=== PATIENT | female | born 1990 | race Asian ===

== ENCOUNTER 2021-09-08 11:57 | Inpatient (IN) ==
[2021-09-08] MEDS ORDERED: OXYTOCIN 30 UNITS/500 ML BAG IV PRN ×2 (13:00)
[2021-09-08 13:29] LABS: Hematocrit (blood only) 38.3 % (37-47); Hemoglobin 12.7 g/dL (12.0-16.0); Mean Corpuscular Hemoglobin 29.8 pg (25-34); Mean Corpuscular Hgb Conc 33.2 g/dL (32-36); Mean Corpuscular Volume 89.9 fL (80-100); Mean Platelet Volume 11.8 fL (7.4-10.4); Platelet Count 162 K/uL (130-400); RDW Coefficient of Variation 14.3 % (11.5-14.5); RDW Standard Deviation 46.6 fL (36.4-46.3); Red Blood Count 4.26 M/uL (4.2-5.4); White Blood Count 7.02 K/uL (4.8-10.8)
--- NOTE | 2021-09-08 14:41 | History & Physical Report ---
Date of Service September 08, 2021 Assessment & Plan (1) Supervision of normal intrauterine in primigravida: Plan: Admit to L&D. EFM/toco/labs. Will plan for pitocin for augmentation of labor - sanjuana enough that cytotec cannot be used for cervical ripening, therefore will begin pitocin. Discussed plan with patient and , answered all questions. Patient speaks Tajik as a second language - she is able to converse fully, and asked questions for clarification when she did not understand. She was offered use of director life sales phone if she desired; declined for now - she will let us know if she needs this. OK for epidural when she desires. Admission and Anticipated Discharge Date Admission Date: September 08, 2021 History of Present Illness Chief Complaint: rupture of membranes Primary Care Provider: NELLI PCP 30yo @ 39 05/29, sent from office when she had spontaneous rupture of membranes during cervix examination. +FM, no vaginal bleeding. Not feeling ctx. with gestational diabetes A1. Allergies Allergy/AdvReac Type Severity Reaction Status Date / Time No Known Allergies Allergy Verified 09/08/21 11:06 Home Medications Medication Instructions Recorded Confirmed Type prenat.vits,francisco,spf-bgvj-sakue 1 tab PO DAILY 01/20/21 09/08/21 History acetone (urine) test (Ketone Urine #50 ea 04/10/21 09/08/21 Rx Test) blood sugar diagnostic (OneTouch #150 ea 04/10/21 09/08/21 Rx Verio test strips) blood-glucose meter (OneTouch #1 ea 04/10/21 09/08/21 Rx Verio Flex meter) lancets 33 gauge (OneTouch Delica #150 ea 04/10/21 09/08/21 Rx Plus Lancet) Patient History Family History (Updated 01/20/21 @ 15:12 by Ne Betancur) Other Cancer Social History (Updated 01/20/21 @ 15:14 by Ne Betancur) Smoking Status: Never smoker Second Hand Exposure: No; Do You Dip or Chew Tobacco: No; Tobacco Cessation Education Requested by Patient: No Hx Alcohol Use: No Hx Substance Use: No Preferred Language: Mandarin Hebrew Communication Ability: Effective Therapy Administrative Assistant Required: No Beliefs That Will Affect Care: None marital status: marital status details: Spouse: Kane (29) [phone] Current Living Situation: Spouse Current Living Situation Comment: Lives with and 2 male roommates current occupational status: unemployed Other Information That Helps Us Care for You: No Feels Safe at Home: Yes Safety Concerns: Feels Safe At This Time Assistive Devices: None Review of Systems All systems reviewed & are unremarkable except as noted in HPI & below Physical Exam Physical Exam: Grossly ruptured. Cervix 1/50/-3 FHT Cat 1 [place] irregular Constitutional: WD/WN, vitals as above Respiratory: normal respiratory effort, lungs clear to auscultation no respiratory distress Cardiovascular: Rate/Rhythm: regular rate and regular rhythm Gastrointestinal (Abdomen): Inspection/Auscultation: abdomen normal to inspection Percussion/Palpation: abdomen soft; abdomen nontender Gravid. No s/s chorio or abruption. Skin: no rashes, warm and dry Psychiatric: A+Ox3, euthymic affect Results & Data ([facility]) Vital Signs (Past 12 Hours) Vital Signs Temp Pulse Resp BP 09/08/21 13:52 112 H 132/79 09/08/21 13:45 36.6 C 96 H 16 125/77 09/08/21 12:16 36.8 C 96 H 20 125/77 Coding Level of Care Code None Diagnoses Supervision of normal intrauterine in primigravida Z34.00
[2021-09-08] MEDS ORDERED: ePHEDrine sulfate 50 MG/ML AMP ONE (18:56)
[2021-09-08] MEDS ORDERED: BUPIVACAINE 0.25% 30 ML VIAL ONE (18:57)
[2021-09-08] MEDS ORDERED: fentaNYL citrate 100 MCG/2 ML VIAL ONE (18:57)
[2021-09-08] MEDS ORDERED: SODIUM CHLORIDE 0.9% INJ 10 ML VIAL ONE (18:57)
[2021-09-08] MEDS ORDERED: fentaNYL 2MCG/ML ROPIVACAINE 1.25MG/ML 100 ML BAG EPI ONE (18:58)
[2021-09-08] MEDS: LACTATED RINGER'S 1,000 ML IV PRN ×2 (19:08→20:10)
[2021-09-08] MEDS ORDERED: NALBUPHINE HCL INJ 10 MG/ML AMP IV PRN (19:56)
[2021-09-08] MEDS ORDERED: NALOXONE HCL 1 MG in SODIUM CHLORIDE 0.9% 1000ML 1,000 ML IV PRN (19:56)
[2021-09-08] MEDS ORDERED: NALOXONE HCL 0.4 MG/1 ML VIAL/CARP IV PRN (19:56)
[2021-09-08] MEDS ORDERED: diphenhydrAMINE 50 MG/ML VIAL IV PRN (19:56)
[2021-09-08] MEDS ORDERED: ePHEDrine sulfate 50 MG/ML AMP IV PRN (19:56)
[2021-09-08] MEDS ORDERED: ONDANSETRON INJ 2 MG/ML 2 ML VIAL IV PRN (19:56)
--- NOTE | 2021-09-08 19:58 | Anesthesiology Consultation ---
Date of Service September 08, 2021 Assessment & Plan (1) Encounter for pre-operative examination: Chart Review Chart Review: Patient NOT seen in Pre Admission Testing and Acceptable Risk for Labor Epidural Consults Requested none History Height/Weight Height: 5 ft 1.02 in Weight: 66.224 kg Allergies Allergy/AdvReac Type Severity Reaction Status Date / Time No Known Allergies Allergy Verified 09/08/21 11:06 Medications Home Medications Medication Instructions Recorded Confirmed Last Taken prenat.vits,francisco,hxo-stbi-hstdf 1 tab PO DAILY 01/20/21 09/08/21 09/08/21 10:00 acetone (urine) test (Ketone Urine #50 ea 04/10/21 09/08/21 Unknown Test) blood sugar diagnostic (OneTouch #150 ea 04/10/21 09/08/21 Unknown Verio test strips) blood-glucose meter (OneTouch #1 ea 04/10/21 09/08/21 Unknown Verio Flex meter) lancets 33 gauge (OneTouch Delica #150 ea 04/10/21 09/08/21 Unknown Plus Lancet) Active Medications Generic Name Dose Route Start Last Admin Trade Name Freq PRN Reason Stop Dose Admin Oxytocin 30 units in 500 mls @ 15 mls/hr 09/08/21 13:00 09/08/21 17:10 Pitocin IV 09/10/21 12:59 0.9 units/hr .Q24H PRN 15 mls/hr Labor Induction/Augmentation Titration Protocol 0.9 UNITS/HR Lactated Ringer's 1,000 mls @ 125 mls/hr 09/08/21 13:00 09/08/21 19:08 Lr IV 09/10/21 12:59 999 mls/hr .Q8H PRN Administration L&D Protocol Protocol Past Medical History healthy Exercise / Class Metabolic Activity II 4-5 Yardwork/Stairs/Walk up hill Past Family History Family History Other Cancer Past Anesthesia History No Hx of Anesthesia Complications and No Family Hx of Anesthesia Complications History of PONV No Hx of PONV and No Hx of Motion Sickness Social History Smoking Status: Never smoker Do You Dip or Chew Tobacco: No Hx Alcohol Use: No Hx Substance Use: No substance use type: does not use Physical Exam Vital Signs Last Vital Signs Temp 36.6 C 09/08/21 13:45 Pulse 74 09/08/21 20:16 Resp 18 09/08/21 19:30 BP 133/81 09/08/21 20:13 Pulse Ox 100 09/08/21 20:16 Testing Laboratory Results 09/08/21 13:12 09/08/21 09/08/21 09/08/21 18:20 16:19 14:16 POC Glucose 90 89 109 H
[2021-09-08] MEDS: fentaNYL 2MCG/ML ROPIVACAINE 1.25MG/ML 100 ML BAG EPI PRN (20:24)
--- NOTE | 2021-09-08 21:21 | Labor Progress Brief Note ---
Date of Service September 08, 2021 Subjective Comfortable with epidural. [place] Q 2-3 min FHT Cat 1 with early decels SVE 2/90/-2 - cervix has thinned and softened significantly since last exam. Discussed findings with patient, answered questions. Assessment & Plan Admission and Anticipated Discharge Date Admission Date: September 08, 2021 Results & Data ([facility]) Vital Signs (Past 12 Hours) Vital Signs Temp Pulse Resp BP Pulse Ox 09/08/21 21:16 70 97 09/08/21 21:11 86 98 09/08/21 21:06 70 129/81 98 09/08/21 21:01 88 98 09/08/21 21:00 18 09/08/21 20:56 72 97 09/08/21 20:51 81 98 09/08/21 20:50 78 121/77 09/08/21 20:46 79 97 09/08/21 20:41 72 97 09/08/21 20:36 93 H 97 09/08/21 20:31 82 124/87 97 09/08/21 20:28 75 118/75 09/08/21 20:26 86 98 09/08/21 20:25 82 121/69 09/08/21 20:22 77 124/68 09/08/21 20:21 80 98 09/08/21 20:18 73 107/79 90 09/08/21 20:16 74 100 09/08/21 20:13 79 133/81 09/08/21 20:11 83 100 09/08/21 20:06 79 100 09/08/21 20:03 76 91 09/08/21 20:01 81 100 09/08/21 19:56 78 99 09/08/21 19:46 71 100 09/08/21 19:41 71 98 09/08/21 19:36 75 100 09/08/21 19:31 71 100 09/08/21 19:30 18 09/08/21 19:26 72 99 09/08/21 19:22 18 09/08/21 19:21 76 97 09/08/21 19:16 72 99 09/08/21 19:15 18 09/08/21 19:11 74 98 09/08/21 19:06 97 H 97 09/08/21 13:52 112 H 132/79 09/08/21 13:45 36.6 C 96 H 16 125/77 09/08/21 12:16 36.8 C 96 H Coding Level of Care Code None
[2021-09-09] MEDS ORDERED: LIDOCAINE 2%/EPINEPHRINE 1:200,000 20 ML SDV ONE (01:50)
[2021-09-09] MEDS: BUPIVACAINE 0.25% 30 ML VIAL ONE ×2 (02:04→02:05)
--- NOTE | 2021-09-09 02:21 | Labor Progress Brief Note ---
Date of Service September 09, 2021 Subjective Painful with contractions - anesthesia has been called to re-dose epidural. FHT with early and variable ctx - then had drop for approx 3 min in FHT, but returned to baseline. Resuscitative measures included repositioning and stopping pitocin. FHT returned to baseline. SVE 5/100/-1 Suspect patient is transitioning into active labor. Will change blood sugar checks to hourly at this time. Continue labor. Assessment & Plan Admission and Anticipated Discharge Date Admission Date: September 08, 2021 Results & Data ([facility]) Vital Signs (Past 12 Hours) Vital Signs Temp Pulse Resp BP Pulse Ox 09/09/21 02:16 92 H 97 09/09/21 02:11 97 H 98 09/09/21 02:06 90 116/65 99 09/09/21 02:03 89 111/58 L 09/09/21 02:01 77 100 09/09/21 02:00 18 09/09/21 01:56 123 H 100 09/09/21 01:51 103 H 100 09/09/21 01:46 104 H 99 09/09/21 01:41 86 98 09/09/21 01:36 85 96 09/09/21 01:35 74 118/67 09/09/21 01:31 72 97 09/09/21 01:26 85 96 09/09/21 01:21 70 119/68 97 09/09/21 01:16 81 96 09/09/21 01:11 91 H 98 09/09/21 01:06 74 113/67 97 09/09/21 01:01 73 95 09/09/21 01:00 18 09/09/21 00:56 71 96 09/09/21 00:51 72 128/58 L 97 09/09/21 00:46 70 96 09/09/21 00:41 82 97 09/09/21 00:36 83 100 09/09/21 00:34 82 90 09/09/21 00:31 70 96 09/09/21 00:30 18 09/09/21 00:26 70 95 09/09/21 00:21 68 116/61 95 09/09/21 00:16 70 96 09/09/21 00:11 88 97 09/09/21 00:06 70 100/56 L 95 09/09/21 00:01 87 96 05/21/22 00:00 18 05/20/22 23:56 80 96 05/20/22 23:51 70 97 05/20/22 23:50 77 109/61 05/20/22 23:46 70 96 05/20/22 23:41 76 96 05/20/22 23:36 74 122/67 97 05/20/22 23:31 83 96 05/20/22 23:30 36.8 C 18 05/20/22 23:26 84 96 05/20/22 23:21 72 111/62 96 05/20/22 23:16 78 96 05/20/22 23:11 70 96 05/20/22 23:06 71 114/65 97 05/20/22 23:01 71 97 05/20/22 23:00 18 05/20/22 22:56 68 96 05/20/22 22:51 67 125/73 96 05/20/22 22:46 80 96 05/20/22 22:41 67 96 05/20/22 22:37 70 127/78 05/20/22 22:36 65 97 05/20/22 22:31 82 97 05/20/22 22:30 18 05/20/22 22:26 81 97 05/20/22 22:21 81 96 05/20/22 22:20 75 109/66 05/20/22 22:16 65 96 05/20/22 22:11 75 96 05/20/22 22:06 72 125/80 96 05/20/22 22:01 72 97 05/20/22 22:00 18 05/20/22 21:56 68 97 05/20/22 21:52 65 119/72 05/20/22 21:51 64 97 05/20/22 21:46 64 97 05/20/22 21:41 68 97 05/20/22 21:36 63 98 05/20/22 21:35 72 115/75 05/20/22 21:31 74 98 05/20/22 21:30 36.6 C 18 05/20/22 21:26 69 98 05/20/22 21:21 73 121/80 98 05/20/22 21:16 70 97 05/20/22 21:11 86 98 05/20/22 21:06 70 129/81 98 05/20/22 21:01 88 98 05/20/22 21:00 18 052022 20:56 72 97 05/2022 20:51 81 98 052022 20:50 78 121/77 052022 20:46 79 97 052022 20:41 72 97 052022 20:36 93 H 97 052022 20:31 82 124/87 97 052022 20:28 75 118/75 052022 20:26 86 98 052022 20:25 82 121/69 0520/22 20:22 77 124/68 052022 20:21 80 98 052022 20:18 73 107/79 90 05 20:16 74 100 052022 20:13 79 133/81 052022 20:11 83 100 0522 20:06 79 100 05 20:03 76 91 05 20:01 81 100 05 19:56 78 99 05 19:46 71 100 0522 19:41 71 98 0522 19:36 75 100 052022 19:31 71 100 052022 19:30 18 0520 19:26 72 99 052022 19:22 18 052022 19:21 76 97 052022 19:16 72 99 05/2022 19:15 18 05/2022 19:11 74 98 0520 19:06 97 H 97 Coding Level of Care Code None
[2021-09-09] MEDS: LACTATED RINGER'S 1,000 ML IV PRN ×3 (02:55→15:39)
[2021-09-09] MEDS: fentaNYL 2MCG/ML ROPIVACAINE 1.25MG/ML 100 ML BAG EPI PRN ×2 (04:59→11:17)
--- NOTE | 2021-09-09 06:20 | Labor Progress Brief Note ---
Date of Service September 09, 2021 Subjective Uncomfortable with ctx. Pushing redose of epidural. FHT Cat 1 - early decels. [place] Q 2 7/100/-1 (RN check) Continue labor. Assessment & Plan Admission and Anticipated Discharge Date Admission Date: September 08, 2021 Results & Data ([facility]) Vital Signs (Past 12 Hours) Vital Signs Temp Pulse Resp BP Pulse Ox 09/09/21 06:16 87 97 09/09/21 06:11 80 96 09/09/21 06:07 76 133/74 09/09/21 06:06 79 96 09/09/21 06:01 88 96 09/09/21 06:00 18 09/09/21 05:56 82 97 09/09/21 05:51 79 103/62 98 09/09/21 05:46 83 96 09/09/21 05:41 86 95 09/09/21 05:36 85 137/75 96 09/09/21 05:31 83 96 09/09/21 05:30 18 09/09/21 05:26 80 96 09/09/21 05:21 88 121/59 L 96 09/09/21 05:16 81 95 09/09/21 05:11 89 95 09/09/21 05:06 77 121/73 97 09/09/21 05:01 89 96 09/09/21 05:00 36.8 C 18 09/09/21 04:56 100 H 96 09/09/21 04:51 81 95 09/09/21 04:50 93 H 115/60 09/09/21 04:47 18 09/09/21 04:46 95 H 96 09/09/21 04:41 101 H 96 09/09/21 04:40 89 94 09/09/21 04:37 80 124/67 09/09/21 04:36 85 94 09/09/21 04:34 91 H 94 09/09/21 04:31 80 95 09/09/21 04:30 18 09/09/21 04:29 86 94 09/09/21 04:26 85 94 09/09/21 04:22 85 94 09/09/21 04:21 84 94 09/09/21 04:20 86 107/59 L 09/09/21 04:16 83 95 09/09/21 04:15 83 94 09/09/21 04:11 87 95 05 04:06 80 131/68 95 05 04:01 84 94 05 03:58 82 94 05 03:56 83 95 05 03:51 87 119/65 95 05 03:46 94 H 96 05 03:41 86 95 05 03:36 85 95 05 03:35 100 H 116/68 05 03:31 82 95 05 03:30 18 09/09/21 03:26 86 95 05 03:21 83 95 09/09/21 03:20 103 H 108/65 09/09/21 03:16 83 96 09/09/21 03:11 82 96 09/09/21 03:07 86 113/70 09/09/21 03:06 82 96 09/09/21 03:01 80 95 09/09/21 03:00 18 09/09/21 02:56 90 97 05 02:52 88 119/70 05 02:51 85 97 09/09/21 02:46 101 H 97 09/09/21 02:41 90 97 09/09/21 02:36 97 H 116/70 98 09/09/21 02:31 86 96 09/09/21 02:30 36.8 C 18 09/09/21 02:26 84 97 09/09/21 02:21 93 H 122/71 97 09/09/21 02:16 92 H 97 09/09/21 02:11 97 H 98 09/09/21 02:06 90 116/65 99 09/09/21 02:03 89 111/58 L 09/09/21 02:01 77 100 09/09/21 02:00 18 09/09/21 01:56 123 H 100 05 01:51 103 H 100 09/09/21 01:46 104 H 99 09/09/21 01:41 86 98 09/09/21 01:36 85 96 05 01:35 74 118/67 05 01:31 72 97 05 01:26 85 96 05 01:21 70 119/68 97 05/21/22 01:16 81 96 05/21/22 01:11 91 H 98 05/21/22 01:06 74 113/67 97 05/22 01:01 73 95 05/22 01:00 18 05/21/22 00:56 71 96 05/21/22 00:51 72 128/58 L 97 05/21/22 00:46 70 96 05/21/22 00:41 82 97 0521/22 00:36 83 100 0521/22 00:34 82 90 05/21/22 00:31 70 96 05/21/22 00:30 18 05/21/22 00:26 70 95 05/21/22 00:21 68 116/61 95 05/21/22 00:16 70 96 05/21/22 00:11 88 97 0521/22 00:06 70 100/56 L 95 05 00:01 87 96 05/2122 00:00 18 05/20/22 23:56 80 96 05/20/22 23:51 70 97 05/20/22 23:50 77 109/61 05/20/22 23:46 70 96 05/20/22 23:41 76 96 05/20/22 23:36 74 122/67 97 05/20/22 23:31 83 96 05/20/22 23:30 36.8 C 18 05/20/22 23:26 84 96 05/20/22 23:21 72 111/62 96 05/20/22 23:16 78 96 05/20/22 23:11 70 96 05/20/22 23:06 71 114/65 97 05/20/22 23:01 71 97 05/20/22 23:00 18 05/20/22 22:56 68 96 05/20/22 22:51 67 125/73 96 05/20/22 22:46 80 96 05/20/22 22:41 67 96 05/20/22 22:37 70 127/78 05/20/22 22:36 65 97 05/20/22 22:31 82 97 05/20/22 22:30 18 05/20/22 22:26 81 97 05/20/22 22:21 81 96 05/20/22 22:20 75 109/66 05/20/22 22:16 65 96 05/20/22 22:11 75 96 05/20/22 22:06 72 125/80 96 05/20/22 22:01 72 97 05/20/22 22:00 18 05/20/22 21:56 68 97 05/20/22 21:52 65 119/72 05/20/22 21:51 64 97 05/20/22 21:46 64 97 05/20/22 21:41 68 97 05/20/22 21:36 63 98 05/20/22 21:35 72 115/75 05/20/22 21:31 74 98 05/20/22 21:30 36.6 C 18 05/20/22 21:26 69 98 05/20/22 21:21 73 121/80 98 05/20/22 21:16 70 97 05/20/22 21:11 86 98 05/20/22 21:06 70 129/81 98 05/20/22 21:01 88 98 05/20/22 21:00 18 05/20/22 20:56 72 97 05/20/22 20:51 81 98 05/20/22 20:50 78 121/77 05/20/22 20:46 79 97 05/20/22 20:41 72 97 05/20/22 20:36 93 H 97 05/20/22 20:31 82 124/87 97 05/20/22 20:28 75 118/75 05/20/22 20:26 86 98 05/20/22 20:25 82 121/69 05/20/22 20:22 77 124/68 05/20/22 20:21 80 98 05/20/22 20:18 73 107/79 90 05/20/22 20:16 74 100 05/20/22 20:13 79 133/81 05/20/22 20:11 83 100 05/20/22 20:06 79 100 05/20/22 20:03 76 91 05/20/22 20:01 81 100 05/20/22 19:56 78 99 05/20/22 19:46 71 100 05/20/22 19:41 71 98 05/20/22 19:36 75 100 05/20/22 19:31 71 100 05/20/22 19:30 18 05/20/22 19:26 72 99 05/20/22 19:22 18 05/20/22 19:21 76 97 09/08/21 19:16 72 99 09/08/21 19:15 18 09/08/21 19:11 74 98 09/08/21 19:06 97 H 97 Coding Level of Care Code None
--- NOTE | 2021-09-09 08:17 | Communication Note ---
Date of Service: September 09, 2021 pt c/o 5/10 sharp pain on left side and back. pt bolused with 1% lidocaine with epi 5mL. pt reports improvement in pain and vss
--- NOTE | 2021-09-09 13:32 | Labor Progress Brief Note ---
Date of Service September 09, 2021 Helio sullivan the patient has been pushing however on my for cervical check and she is actually room at this stage we will hold off on pushing anesthesia recently is attempted to get the patient more comfortable with the increased dosing on the epidural. Her contraction pattern seems adequate and she has been on Pitocin for a pproximately 24 hours now due to ruptured membranes that was apparently from an examination in the office. Station 0 we will have the patient wait for descent of the head and full dilatation and then resume pushing Assessment & Plan Admission and Anticipated Discharge Date Admission Date: September 08, 2021 Results & Data ([facility]) Vital Signs (Past 12 Hours) Vital Signs Temp Pulse Resp BP Pulse Ox 09/09/21 13:29 83 89 L 09/09/21 13:27 84 90 09/09/21 13:25 76 137/73 09/09/21 13:22 75 144/75 H 90 09/09/21 13:17 75 93 09/09/21 13:16 79 92 09/09/21 13:12 72 94 09/09/21 13:09 73 92 09/09/21 13:07 75 146/73 H 89 L 09/09/21 13:03 78 92 09/09/21 13:02 73 95 09/09/21 12:57 79 93 09/09/21 12:55 86 92 09/09/21 12:52 105 H 94 09/09/21 12:37 86 79 L 09/09/21 12:36 80 126/62 09/09/21 12:34 79 85 L 09/09/21 12:32 92 H 89 L 09/09/21 12:28 86 90 09/09/21 12:27 90 93 09/09/21 12:23 99.0 F 20 09/09/21 12:21 95 H 116/55 L 92 09/09/21 12:16 118 H 80 L 09/09/21 12:11 88 96 09/09/21 12:06 80 95 09/09/21 12:05 86 111/58 L 09/09/21 12:03 74 132/68 09/09/21 12:01 73 92 09/09/21 11:57 102 H 91 09/09/21 11:56 91 H 93 09/09/21 11:51 88 92 05/21/22 11:48 83 90 05/21/22 11:46 75 94 05/21/22 11:42 83 87 L 05/21/22 11:41 78 94 05/21/22 11:37 75 141/65 H 0521/22 11:36 73 97 05/21/22 11:31 79 95 05/21/22 11:30 75 92 05/21/22 11:26 76 97 05/21/22 11:21 72 97 05/21/22 11:20 71 139/84 05/21/22 11:16 72 96 05/21/22 11:11 70 97 05/21/22 11:06 72 130/82 95 05/21/22 11:01 77 95 05/21/22 10:59 16 05/22 10:56 85 95 05//22 10:51 74 127/74 96 05/21/22 10:46 74 96 05/21/22 10:41 77 96 05//22 10:36 79 96 05/22 10:35 75 111/62 05/22 10:31 83 95 0521/22 10:30 18 05/22 10:26 73 96 05//22 10:21 76 97 05//22 10:20 85 96/53 L 22 10:16 74 95 05/22 10:11 73 97 05/22 10:06 83 97/53 L 97 05 10:01 72 96 05/22 10:00 16 05/22 09:56 72 97 05/22 09:52 72 109/57 L 05/22 09:51 72 98 05/21/22 09:46 78 95 05/21/22 09:41 77 94 05/21/22 09:36 82 95 05/21/22 09:35 70 124/76 0521/22 09:31 76 95 05/21/22 09:29 16 05/21/22 09:26 78 94 05/21/22 09:25 86 94 05/21/22 09:21 79 111/73 96 05/21/22 09:18 99.0 F 0521/22 09:16 72 96 05/21/22 09:11 78 96 05/21/22 09:07 71 128/68 05/21/22 09:06 78 95 05/21/22 09:01 78 96 05/21/22 09:00 16 05/21/22 08:56 78 97 05/21/22 08:51 77 126/72 95 05/21/22 08:46 78 96 05/21/22 08:43 83 93 05/21/22 08:41 81 96 05/21/22 08:36 79 95 05/21/22 08:35 73 119/67 05/21/22 08:31 75 96 05/21/22 08:30 16 05/21/22 08:26 84 96 05/21/22 08:21 93 H 110/61 96 05/21/22 08:16 77 96 05/21/22 08:11 87 97 05/21/22 08:07 99.5 F 78 16 127/70 05/21/22 08:06 81 95 05/21/22 08:01 83 96 05/21/22 07:59 16 05/21/22 07:56 88 95 05/21/22 07:52 83 94 05/21/22 07:51 81 95 05/21/22 07:50 82 118/65 05/21/22 07:46 82 95 05/21/22 07:41 85 95 05/21/22 07:36 86 96 05/21/22 07:31 80 96 05/21/22 07:26 75 97 05/21/22 07:21 78 132/75 99 05/21/22 07:16 77 99 05/21/22 07:11 77 96 05/21/22 07:06 75 97 05/21/22 07:05 75 137/74 05/21/22 07:01 81 98 05/21/22 07:00 18 05/21/22 06:56 81 97 05/21/22 06:51 76 122/65 97 05/21/22 06:46 77 96 05/21/22 06:41 79 96 05/21/22 06:37 79 118/61 05/21/22 06:36 77 96 05/21/22 06:31 78 96 05/21/22 06:30 18 05/21/22 06:26 79 96 05/21/22 06:22 78 139/84 05/21/22 06:21 75 97 05/21/22 06:16 87 97 05 06:11 80 96 05 06:07 76 133/74 05 06:06 79 96 05 06:01 88 96 09/09/21 06:00 18 09/09/21 05:56 82 97 09/09/21 05:51 79 103/62 98 05 05:46 83 96 05 05:41 86 95 09/09/21 05:36 85 137/75 96 05 05:31 83 96 05 05:30 18 05 05:26 80 96 05 05:21 88 121/59 L 96 09/09/21 05:16 81 95 09/09/21 05:11 89 95 09/09/21 05:06 77 121/73 97 09/09/21 05:01 89 96 09/09/21 05:00 98.2 F 18 09/09/21 04:56 100 H 96 09/09/21 04:51 81 95 05 04:50 93 H 115/60 05 04:47 18 05 04:46 95 H 96 09/09/21 04:41 101 H 96 09/09/21 04:40 89 94 05 04:37 80 124/67 05 04:36 85 94 09/09/21 04:34 91 H 94 09/09/21 04:31 80 95 05 04:30 18 05 04:29 86 94 05 04:26 85 94 05 04:22 85 94 05 04:21 84 94 05 04:20 86 107/59 L 09/09/21 04:16 83 95 05 04:15 83 94 05 04:11 87 95 05 04:06 80 131/68 95 05 04:01 84 94 05 03:58 82 94 05 03:56 83 95 05 03:51 87 119/65 95 05 03:46 94 H 96 05 03:41 86 95 05/21/22 03:36 85 95 09/09/21 03:35 100 H 116/68 09/09/21 03:31 82 95 09/09/21 03:30 18 09/09/21 03:26 86 95 09/09/21 03:21 83 95 09/09/21 03:20 103 H 108/65 09/09/21 03:16 83 96 09/09/21 03:11 82 96 09/09/21 03:07 86 113/70 09/09/21 03:06 82 96 09/09/21 03:01 80 95 09/09/21 03:00 18 09/09/21 02:56 90 97 09/09/21 02:52 88 119/70 09/09/21 02:51 85 97 09/09/21 02:46 101 H 97 09/09/21 02:41 90 97 09/09/21 02:36 97 H 116/70 98 09/09/21 02:31 86 96 09/09/21 02:30 98.2 F 18 09/09/21 02:26 84 97 09/09/21 02:21 93 H 122/71 97 09/09/21 02:16 92 H 97 09/09/21 02:11 97 H 98 09/09/21 02:06 90 116/65 99 09/09/21 02:03 89 111/58 L 09/09/21 02:01 77 100 09/09/21 02:00 18 09/09/21 01:56 123 H 100 09/09/21 01:51 103 H 100 09/09/21 01:46 104 H 99 09/09/21 01:41 86 98 09/09/21 01:36 85 96 09/09/21 01:35 74 118/67 Coding Level of Care Code None
--- NOTE | 2021-09-09 14:05 | Labor Progress Brief Note ---
Date of Service September 09, 2021 Update from last note contractions actually had not been adequate that was a typo we are trying to continue the Pitocin I had a fairly lengthy conversation with both the patient and her partner I am concerned about this process as its been more than 24 hours on Pitocin and progress is really slowed down. I discussed that we make the contractions more adequate this is her best chance but the baby may or may not tolerate this to as the repeat periodic decelerations. With that being said we will do all we can to avoid unnecessary but I did talk about the possibility of as the patient is somewhat exhausted at this stage. I will check her in the near future and see if there is any cervical change Assessment & Plan Admission and Anticipated Discharge Date Admission Date: September 08, 2021 Results & Data ([facility]) Vital Signs (Past 12 Hours) Vital Signs Temp Pulse Resp BP Pulse Ox 09/09/21 14:02 77 95 09/09/21 13:57 74 95 09/09/21 13:52 81 111/62 93 09/09/21 13:47 84 92 09/09/21 13:42 75 92 09/09/21 13:41 77 92 09/09/21 13:37 83 92 09/09/21 13:36 74 115/64 09/09/21 13:35 76 92 09/09/21 13:32 85 92 09/09/21 13:29 83 89 L 09/09/21 13:27 84 90 09/09/21 13:25 76 137/73 09/09/21 13:22 75 144/75 H 90 09/09/21 13:17 75 93 09/09/21 13:16 79 92 09/09/21 13:12 72 94 09/09/21 13:09 73 92 09/09/21 13:07 75 146/73 H 89 L 09/09/21 13:03 78 92 09/09/21 13:02 73 95 09/09/21 12:57 79 93 09/09/21 12:55 86 92 09/09/21 12:52 105 H 94 09/09/21 12:37 86 79 L 09/09/21 12:36 80 126/62 09/09/21 12:34 79 85 L 09/09/21 12:32 92 H 89 L 09/09/21 12:28 86 90 09/09/21 12:27 90 93 09/09/21 12:23 99.0 F 20 09/09/21 12:21 95 H 116/55 L 92 09/09/21 12:16 118 H 80 L 09/09/21 12:11 88 96 09/09/21 12:06 80 95 09/09/21 12:05 86 111/58 L 09/09/21 12:03 74 132/68 09/09/21 12:01 73 92 09/09/21 11:57 102 H 91 09/09/21 11:56 91 H 93 09/09/21 11:51 88 92 09/09/21 11:48 83 90 09/09/21 11:46 75 94 09/09/21 11:42 83 87 L 09/09/21 11:41 78 94 09/09/21 11:37 75 141/65 H 09/09/21 11:36 73 97 09/09/21 11:31 79 95 09/09/21 11:30 75 92 09/09/21 11:26 76 97 09/09/21 11:21 72 97 09/09/21 11:20 71 139/84 09/09/21 11:16 72 96 09/09/21 11:11 70 97 09/09/21 11:06 72 130/82 95 09/09/21 11:01 77 95 09/09/21 10:59 16 09/09/21 10:56 85 95 09/09/21 10:51 74 127/74 96 09/09/21 10:46 74 96 09/09/21 10:41 77 96 09/09/21 10:36 79 96 09/09/21 10:35 75 111/62 09/09/21 10:31 83 95 09/09/21 10:30 18 09/09/21 10:26 73 96 09/09/21 10:21 76 97 09/09/21 10:20 85 96/53 L 09/09/21 10:16 74 95 09/09/21 10:11 73 97 09/09/21 10:06 83 97/53 L 97 09/09/21 10:01 72 96 09/09/21 10:00 16 09/09/21 09:56 72 97 09/09/21 09:52 72 109/57 L 05/21/22 09:51 72 98 05/21/22 09:46 78 95 05/21/22 09:41 77 94 05/21/22 09:36 82 95 05/21/22 09:35 70 124/76 05/21/22 09:31 76 95 05/21/22 09:29 16 05/21/22 09:26 78 94 05/21/22 09:25 86 94 05/21/22 09:21 79 111/73 96 05/21/22 09:18 99.0 F 05/21/22 09:16 72 96 05/21/22 09:11 78 96 05/21/22 09:07 71 128/68 05/21/22 09:06 78 95 05/21/22 09:01 78 96 05/21/22 09:00 16 05/21/22 08:56 78 97 05/21/22 08:51 77 126/72 95 05/21/22 08:46 78 96 05/21/22 08:43 83 93 05/21/22 08:41 81 96 05/21/22 08:36 79 95 05/21/22 08:35 73 119/67 05/21/22 08:31 75 96 05/21/22 08:30 16 05/21/22 08:26 84 96 05/21/22 08:21 93 H 110/61 96 05/21/22 08:16 77 96 05/21/22 08:11 87 97 05/21/22 08:07 99.5 F 78 16 127/70 05/21/22 08:06 81 95 05/21/22 08:01 83 96 05/21/22 07:59 16 05/21/22 07:56 88 95 05/21/22 07:52 83 94 05/21/22 07:51 81 95 05/21/22 07:50 82 118/65 05/21/22 07:46 82 95 05/21/22 07:41 85 95 05/21/22 07:36 86 96 05/21/22 07:31 80 96 05/21/22 07:26 75 97 05/21/22 07:21 78 132/75 99 05/21/22 07:16 77 99 05/21/22 07:11 77 96 05/21/22 07:06 75 97 05/21/22 07:05 75 137/74 05 07:01 81 98 05 07:00 18 09/09/21 06:56 81 97 05 06:51 76 122/65 97 09/09/21 06:46 77 96 05 06:41 79 96 09/09/21 06:37 79 118/61 05 06:36 77 96 05 06:31 78 96 05 06:30 18 05 06:26 79 96 05 06:22 78 139/84 05 06:21 75 97 09/09/21 06:16 87 97 09/09/21 06:11 80 96 09/09/21 06:07 76 133/74 05 06:06 79 96 09/09/21 06:01 88 96 09/09/21 06:00 18 09/09/21 05:56 82 97 09/09/21 05:51 79 103/62 98 09/09/21 05:46 83 96 09/09/21 05:41 86 95 05 05:36 85 137/75 96 09/09/21 05:31 83 96 09/09/21 05:30 18 05 05:26 80 96 05 05:21 88 121/59 L 96 09/09/21 05:16 81 95 09/09/21 05:11 89 95 05 05:06 77 121/73 97 05 05:01 89 96 05 05:00 98.2 F 18 05 04:56 100 H 96 0522 04:51 81 95 05 04:50 93 H 115/60 0522 04:47 18 05 04:46 95 H 96 05 04:41 101 H 96 05 04:40 89 94 0522 04:37 80 124/67 0522 04:36 85 94 0522 04:34 91 H 94 0522 04:31 80 95 05 04:30 18 0522 04:29 86 94 0522 04:26 85 94 05/22 04:22 85 94 09/09/21 04:21 84 94 09/09/21 04:20 86 107/59 L 09/09/21 04:16 83 95 09/09/21 04:15 83 94 09/09/21 04:11 87 95 09/09/21 04:06 80 131/68 95 09/09/21 04:01 84 94 09/09/21 03:58 82 94 09/09/21 03:56 83 95 09/09/21 03:51 87 119/65 95 09/09/21 03:46 94 H 96 09/09/21 03:41 86 95 09/09/21 03:36 85 95 09/09/21 03:35 100 H 116/68 09/09/21 03:31 82 95 09/09/21 03:30 18 09/09/21 03:26 86 95 09/09/21 03:21 83 95 09/09/21 03:20 103 H 108/65 09/09/21 03:16 83 96 09/09/21 03:11 82 96 09/09/21 03:07 86 113/70 09/09/21 03:06 82 96 09/09/21 03:01 80 95 09/09/21 03:00 18 09/09/21 02:56 90 97 09/09/21 02:52 88 119/70 09/09/21 02:51 85 97 09/09/21 02:46 101 H 97 09/09/21 02:41 90 97 09/09/21 02:36 97 H 116/70 98 09/09/21 02:31 86 96 09/09/21 02:30 98.2 F 18 09/09/21 02:26 84 97 09/09/21 02:21 93 H 122/71 97 09/09/21 02:16 92 H 97 09/09/21 02:11 97 H 98 09/09/21 02:06 90 116/65 99 Coding Level of Care Code None
--- NOTE | 2021-09-09 14:50 | Labor Progress Brief Note ---
Date of Service September 09, 2021 On recheck of her cervix there is more swelling of the anterior lip and she has a complete rim around the cervix. There is still 0 station there is increased caput. On review of her induction process for rupture membranes she is now really slowed down she was 8 cm this morning at most she is 9 now and that is over a process of 7 hours. I have discussed my concerns especially with some recurrent D cells that section might well be advised. There is been slow process prolonged rupture of membranes and increased swelling of the anterior lip. I discussed what is involved in a section and risks involved we discussed the risks of a prolonged labor rupture of membranes and infection risks as well. Ultimately the question is whether the baby will fit through the pelvis at this stage I am suspect that it will not however there not sure what they wish at this stage and will converse amongst themselves Assessment & Plan Admission and Anticipated Discharge Date Admission Date: September 08, 2021 Results & Data ([facility]) Vital Signs (Past 12 Hours) Vital Signs Temp Pulse Resp BP Pulse Ox 09/09/21 14:42 74 94 09/09/21 14:37 98 H 96 09/09/21 14:35 77 130/75 09/09/21 14:32 83 94 09/09/21 14:29 95 H 91 09/09/21 14:27 69 93 09/09/21 14:22 73 93 09/09/21 14:21 74 130/73 09/09/21 14:17 76 92 09/09/21 14:12 90 95 09/09/21 14:11 99.0 F 78 18 91 09/09/21 14:07 77 96 09/09/21 14:06 75 131/75 09/09/21 14:02 77 95 09/09/21 13:57 74 95 09/09/21 13:52 81 111/62 93 09/09/21 13:47 84 92 09/09/21 13:42 75 92 09/09/21 13:41 77 92 09/09/21 13:37 83 92 09/09/21 13:36 74 115/64 09/09/21 13:35 76 92 09/09/21 13:32 85 92 09/09/21 13:29 83 89 L 09/09/21 13:27 84 90 09/09/21 13:25 76 137/73 09/09/21 13:22 75 144/75 H 90 09/09/21 13:17 75 93 09/09/21 13:16 79 92 09/09/21 13:12 72 94 09/09/21 13:09 73 92 09/09/21 13:07 75 146/73 H 89 L 09/09/21 13:03 78 92 09/09/21 13:02 73 95 09/09/21 12:57 79 93 09/09/21 12:55 86 92 09/09/21 12:52 105 H 94 09/09/21 12:37 86 79 L 09/09/21 12:36 80 126/62 09/09/21 12:34 79 85 L 09/09/21 12:32 92 H 89 L 09/09/21 12:30 24 09/09/21 12:28 86 90 09/09/21 12:27 90 93 09/09/21 12:23 99.0 F 20 09/09/21 12:21 95 H 116/55 L 92 09/09/21 12:16 118 H 80 L 09/09/21 12:11 88 96 09/09/21 12:06 80 95 09/09/21 12:05 86 111/58 L 09/09/21 12:03 74 132/68 09/09/21 12:01 73 92 09/09/21 11:57 102 H 91 09/09/21 11:56 91 H 93 09/09/21 11:51 88 92 09/09/21 11:48 83 90 09/09/21 11:46 75 94 09/09/21 11:42 83 87 L 09/09/21 11:41 78 94 09/09/21 11:37 75 141/65 H 09/09/21 11:36 73 97 09/09/21 11:31 79 95 09/09/21 11:30 75 92 09/09/21 11:26 76 97 09/09/21 11:21 72 97 09/09/21 11:20 71 139/84 09/09/21 11:16 72 96 09/09/21 11:11 70 97 09/09/21 11:06 72 130/82 95 09/09/21 11:01 77 95 09/09/21 10:59 16 09/09/21 10:56 85 95 05/21/22 10:51 74 127/74 96 05/21/22 10:46 74 96 05/21/22 10:41 77 96 05/21/22 10:36 79 96 05/21/22 10:35 75 111/62 05/21/22 10:31 83 95 05/21/22 10:30 18 05/21/22 10:26 73 96 05/21/22 10:21 76 97 05/21/22 10:20 85 96/53 L 05/21/22 10:16 74 95 05/21/22 10:11 73 97 05/21/22 10:06 83 97/53 L 97 05/21/22 10:01 72 96 05/21/22 10:00 16 05/21/22 09:56 72 97 05/21/22 09:52 72 109/57 L 05/21/22 09:51 72 98 05/21/22 09:46 78 95 05/21/22 09:41 77 94 05/21/22 09:36 82 95 05/21/22 09:35 70 124/76 05/21/22 09:31 76 95 05/21/22 09:29 16 05/21/22 09:26 78 94 05/21/22 09:25 86 94 05/21/22 09:21 79 111/73 96 05/21/22 09:18 99.0 F 05/21/22 09:16 72 96 05/21/22 09:11 78 96 05/21/22 09:07 71 128/68 05/21/22 09:06 78 95 05/21/22 09:01 78 96 05/21/22 09:00 16 05/21/22 08:56 78 97 05/21/22 08:51 77 126/72 95 05/21/22 08:46 78 96 05/21/22 08:43 83 93 05/21/22 08:41 81 96 05/21/22 08:36 79 95 05/21/22 08:35 73 119/67 05/21/22 08:31 75 96 05/21/22 08:30 16 05/21/22 08:26 84 96 05/21/22 08:21 93 H 110/61 96 05/21/22 08:16 77 96 05/21/22 08:11 87 97 05/21/22 08:07 99.5 F 78 16 127/70 05/21/22 08:06 81 95 05/21/22 08:01 83 96 05/21/22 07:59 16 05/21/22 07:56 88 95 05/21/22 07:52 83 94 05/21/22 07:51 81 95 05/21/22 07:50 82 118/65 05/21/22 07:46 82 95 05/21/22 07:41 85 95 05/21/22 07:36 86 96 05/21/22 07:31 80 96 05/21/22 07:26 75 97 05/21/22 07:21 78 132/75 99 05/21/22 07:16 77 99 05/21/22 07:11 77 96 05//22 07:06 75 97 05/22 07:05 75 137/74 05/21/22 07:01 81 98 05/21/22 07:00 18 05/21/22 06:56 81 97 05/21/22 06:51 76 122/65 97 05/21/22 06:46 77 96 05/21/22 06:41 79 96 05/21/22 06:37 79 118/61 05/21/22 06:36 77 96 05/21/22 06:31 78 96 05/21/22 06:30 18 05/21/22 06:26 79 96 05/21/22 06:22 78 139/84 05/21/22 06:21 75 97 05/21/22 06:16 87 97 05/21/22 06:11 80 96 05/21/22 06:07 76 133/74 0521/22 06:06 79 96 05/21/22 06:01 88 96 05/21/22 06:00 18 05/21/22 05:56 82 97 05/21/22 05:51 79 103/62 98 05/21/22 05:46 83 96 05/21/22 05:41 86 95 05/21/22 05:36 85 137/75 96 05/21/22 05:31 83 96 05/21/22 05:30 18 05/21/22 05:26 80 96 05/21/22 05:21 88 121/59 L 96 05/21/22 05:16 81 95 05/21/22 05:11 89 95 05 05:06 77 121/73 97 05 05:01 89 96 05 05:00 98.2 F 18 09/09/21 04:56 100 H 96 05 04:51 81 95 05 04:50 93 H 115/60 05 04:47 18 09/09/21 04:46 95 H 96 09/09/21 04:41 101 H 96 09/09/21 04:40 89 94 05 04:37 80 124/67 05 04:36 85 94 05 04:34 91 H 94 09/09/21 04:31 80 95 05 04:30 18 09/09/21 04:29 86 94 05 04:26 85 94 09/09/21 04:22 85 94 05 04:21 84 94 09/09/21 04:20 86 107/59 L 09/09/21 04:16 83 95 05 04:15 83 94 05 04:11 87 95 05 04:06 80 131/68 95 05 04:01 84 94 05 03:58 82 94 05 03:56 83 95 05/ 03:51 87 119/65 95 05 03:46 94 H 96 09/09/21 03:41 86 95 05 03:36 85 95 05 03:35 100 H 116/68 0522 03:31 82 95 0522 03:30 18 05 03:26 86 95 05/22 03:21 83 95 05/22 03:20 103 H 108/65 0522 03:16 83 96 0522 03:11 82 96 05 03:07 86 113/70 05/22 03:06 82 96 05 03:01 80 95 05 03:00 18 05 02:56 90 97 05 02:52 88 119/70 05/22 02:51 85 97 Coding Level of Care Code None
--- NOTE | 2021-09-09 15:50 | Labor Progress Brief Note ---
Date of Service September 09, 2021 Further update again I reviewed the risks of prolonged labor prolonged rupture of membrane including risks of infection to her and the baby at this stage though she does not wishes and wishes to continue to labor. I discussed that we would continue to augment the Pitocin at her request I did discuss my concerns. At this stage they understand those concerns they voiced and would like to continue to try labor. Those concerns in mind specifically that I feel a section would be indicated for prolonged labor and only 1 cm of dilation in the last 8 hours Assessment & Plan Admission and Anticipated Discharge Date Admission Date: September 08, 2021 Results & Data ([facility]) Vital Signs (Past 12 Hours) Vital Signs Temp Pulse Resp BP Pulse Ox 09/09/21 15:47 68 95 09/09/21 15:42 68 95 09/09/21 15:37 68 96 09/09/21 15:36 71 119/67 09/09/21 15:32 69 94 09/09/21 15:29 99.7 F H 18 09/09/21 15:27 69 95 09/09/21 15:22 75 95 09/09/21 15:21 74 144/78 H 90 09/09/21 15:17 70 93 09/09/21 15:14 70 92 09/09/21 15:12 71 93 09/09/21 15:09 78 92 09/09/21 15:07 72 136/75 91 09/09/21 15:02 86 92 09/09/21 14:59 76 92 09/09/21 14:57 81 93 09/09/21 14:53 72 92 09/09/21 14:52 71 133/82 92 09/09/21 14:48 72 92 09/09/21 14:47 74 93 09/09/21 14:42 74 94 09/09/21 14:37 98 H 96 09/09/21 14:35 77 130/75 09/09/21 14:32 83 94 09/09/21 14:29 95 H 18 91 09/09/21 14:27 69 93 09/09/21 14:22 73 93 09/09/21 14:21 74 130/73 09/09/21 14:17 76 92 09/09/21 14:12 90 95 09/09/21 14:11 99.0 F 78 18 91 09/09/21 14:07 77 96 09/09/21 14:06 75 131/75 09/09/21 14:02 77 95 09/09/21 13:57 74 95 09/09/21 13:52 81 111/62 93 09/09/21 13:47 84 92 09/09/21 13:42 75 92 09/09/21 13:41 77 92 09/09/21 13:37 83 92 09/09/21 13:36 74 115/64 09/09/21 13:35 76 92 09/09/21 13:32 85 92 09/09/21 13:29 83 89 L 09/09/21 13:27 84 90 09/09/21 13:25 76 137/73 09/09/21 13:22 75 144/75 H 90 09/09/21 13:17 75 93 09/09/21 13:16 79 92 09/09/21 13:12 72 94 09/09/21 13:09 73 92 09/09/21 13:07 75 146/73 H 89 L 09/09/21 13:03 78 92 09/09/21 13:02 73 95 09/09/21 12:57 79 93 09/09/21 12:55 86 92 09/09/21 12:52 105 H 94 09/09/21 12:37 86 79 L 09/09/21 12:36 80 126/62 09/09/21 12:34 79 85 L 09/09/21 12:32 92 H 89 L 09/09/21 12:30 24 09/09/21 12:28 86 90 09/09/21 12:27 90 93 09/09/21 12:23 99.0 F 20 09/09/21 12:21 95 H 116/55 L 92 09/09/21 12:16 118 H 80 L 09/09/21 12:11 88 96 09/09/21 12:06 80 95 09/09/21 12:05 86 111/58 L 09/09/21 12:03 74 132/68 09/09/21 12:01 73 92 09/09/21 11:57 102 H 91 09/09/21 11:56 91 H 93 09/09/21 11:51 88 92 09/09/21 11:48 83 90 09/09/21 11:46 75 94 05/21/22 11:42 83 87 L 05/21/22 11:41 78 94 05/21/22 11:37 75 141/65 H 0521/22 11:36 73 97 05/21/22 11:31 79 95 05/21/22 11:30 75 92 05/21/22 11:26 76 97 05/21/22 11:21 72 97 05/21/22 11:20 71 139/84 0521/22 11:16 72 96 05/22 11:11 70 97 0521/22 11:06 72 130/82 95 05/21/22 11:01 77 95 05/21/22 10:59 16 05/22 10:56 85 95 05/22 10:51 74 127/74 96 05/22 10:46 74 96 05/22 10:41 77 96 05/21/22 10:36 79 96 05/21/22 10:35 75 111/62 05/22 10:31 83 95 05/22 10:30 18 0522 10:26 73 96 05/22 10:21 76 97 05/22 10:20 85 96/53 L 09/09/21 10:16 74 95 05/22 10:11 73 97 05/22 10:06 83 97/53 L 97 05 10:01 72 96 05/22 10:00 16 05/22 09:56 72 97 05/22 09:52 72 109/57 L 22 09:51 72 98 05/22 09:46 78 95 0521/22 09:41 77 94 0521/22 09:36 82 95 05/21/22 09:35 70 124/76 0521/22 09:31 76 95 0521/22 09:29 16 0521/22 09:26 78 94 0521/22 09:25 86 94 05/21/22 09:21 79 111/73 96 05/21/22 09:18 99.0 F 0521/22 09:16 72 96 0521/22 09:11 78 96 0521/22 09:07 71 128/68 05/22 09:06 78 95 05/21/22 09:01 78 96 05/21/22 09:00 16 05/21/22 08:56 78 97 05/21/22 08:51 77 126/72 95 05/21/22 08:46 78 96 05/21/22 08:43 83 93 05/21/22 08:41 81 96 05/21/22 08:36 79 95 05/21/22 08:35 73 119/67 05/21/22 08:31 75 96 05/21/22 08:30 16 05/21/22 08:26 84 96 05/21/22 08:21 93 H 110/61 96 05/21/22 08:16 77 96 05/21/22 08:11 87 97 05/21/22 08:07 99.5 F 78 16 127/70 05/21/22 08:06 81 95 05/21/22 08:01 83 96 05/21/22 07:59 16 05/21/22 07:56 88 95 05/21/22 07:52 83 94 05/21/22 07:51 81 95 05/21/22 07:50 82 118/65 05/21/22 07:46 82 95 05/21/22 07:41 85 95 05/21/22 07:36 86 96 05/21/22 07:31 80 96 05/21/22 07:26 75 97 05/21/22 07:21 78 132/75 99 05/21/22 07:16 77 99 05/21/22 07:11 77 96 05/21/22 07:06 75 97 05/21/22 07:05 75 137/74 05/21/22 07:01 81 98 05/21/22 07:00 18 05/21/22 06:56 81 97 05/21/22 06:51 76 122/65 97 05/21/22 06:46 77 96 05/21/22 06:41 79 96 05/21/22 06:37 79 118/61 05/21/22 06:36 77 96 05/21/22 06:31 78 96 05/21/22 06:30 18 05/21/22 06:26 79 96 05/21/22 06:22 78 139/84 05/21/22 06:21 75 97 05/21/22 06:16 87 97 05/21/22 06:11 80 96 05/21/22 06:07 76 133/74 09/09/21 06:06 79 96 09/09/21 06:01 88 96 09/09/21 06:00 18 09/09/21 05:56 82 97 09/09/21 05:51 79 103/62 98 09/09/21 05:46 83 96 09/09/21 05:41 86 95 09/09/21 05:36 85 137/75 96 09/09/21 05:31 83 96 09/09/21 05:30 18 09/09/21 05:26 80 96 09/09/21 05:21 88 121/59 L 96 09/09/21 05:16 81 95 09/09/21 05:11 89 95 09/09/21 05:06 77 121/73 97 09/09/21 05:01 89 96 09/09/21 05:00 98.2 F 18 09/09/21 04:56 100 H 96 09/09/21 04:51 81 95 09/09/21 04:50 93 H 115/60 09/09/21 04:47 18 09/09/21 04:46 95 H 96 09/09/21 04:41 101 H 96 09/09/21 04:40 89 94 09/09/21 04:37 80 124/67 09/09/21 04:36 85 94 09/09/21 04:34 91 H 94 09/09/21 04:31 80 95 09/09/21 04:30 18 09/09/21 04:29 86 94 09/09/21 04:26 85 94 09/09/21 04:22 85 94 09/09/21 04:21 84 94 09/09/21 04:20 86 107/59 L 09/09/21 04:16 83 95 09/09/21 04:15 83 94 09/09/21 04:11 87 95 09/09/21 04:06 80 131/68 95 09/09/21 04:01 84 94 09/09/21 03:58 82 94 09/09/21 03:56 83 95 09/09/21 03:51 87 119/65 95 Coding Level of Care Code None
--- NOTE | 2021-09-09 18:53 | Delivery Summary ---
Vaginal Delivery Summary Date of Service September 09, 2021 Vaginal Delivery Summary Operative note This was a vacuum-assisted delivery was a low vacuum the patient been pushing for a total of 3 hours at a long slow progress of delivery where she was induced with Pitocin for about 30 hours she did progressed to fully dilated and got it down to +2 station at that stage she was starting to reach exhaustion as a result I offered her a vacuum delivery did not guarantee vacuum would be success ful we did discuss the risks of vacuum Patient agreed to this I did perform a brief catheterization with minimal urine catheter removed vacuum was then applied to the baby's head over a total of 1 co ntraction the baby's head distended nicely and then was brought to the perineum a small midline episiotomy was performed At this stage the baby's head was easy Jono delivered vacuum detached mouth and then nares suctioned there was a tight nuchal cord which was clamped and cut after delivery of the head gentle traction with no excessive force easy delivery live vigorous male infant cord had already been cut but another section for cord gases was obtained and cord blood was obtained placenta removed with gentle traction the episiotomy was repaired with 3-0 Vicryl and a small anterior vaginal tear was repaired as well with 3-0 Vicryl sponge and instrument counts were correct estimated blood loss 250 mL rectal exam negative for sutures or defects
[2021-09-09] MEDS ORDERED: OXYTOCIN 30 UNITS/500 ML BAG IV PRN (19:12)
[2021-09-09] MEDS ORDERED: bisacodyL 10 MG SUPP PR PRN (19:12)
[2021-09-09] MEDS ORDERED: HYDROCORTISONE ACETATE 25 MG SUPP PR PRN (19:12)
[2021-09-09] MEDS ORDERED: BENZOCAINE 20% AER SPR 82.5 GM CAN EXT PRN (19:12)
[2021-09-09] MEDS ORDERED: ACETAMINOPHEN 325 MG TAB PO PRN (19:12)
[2021-09-09] MEDS ORDERED: oxyCODONE/ACETAMINOPHEN 5mg/325mg TAB PO PRN (19:12)
[2021-09-09] MEDS ORDERED: DIPHTHERIA/TETANUS/PERTUSSIS 0.5 ML SYR/VIAL IM ONE (19:12)
[2021-09-09 19:38] LABS: Base Excess Cord Arterial Bld -6.5 mEq/L (-9-1.8); Base Excess Cord Venous Blood -6.3 mEq/L (-7.7-1.9); CO2 Cord Arterial Blood 39 mmHg (39.1-73.5); Cord Venous Blood HCO3 19 mmol/L (18.4-26.8); Cord Venous Blood PCO2 38 mmHg (30.4-57.2); Cord Venous Blood PO2 26 mmHg (14.1-43.3); Cord Venous Blood pH 7.32 (7.20-7.44); HCO3 Cord Arterial Blood 19 mmol/L (19.7-28.5); PO2 Cord Arterial Blood 21 mmHg (4.1-31.7); pH Cord Arterial Blood 7.31 (7.1-7.38)
[2021-09-09 19:39] LABS: Oxygen Sat Cord Arterial Blood < 60.0 % (<60)
--- NOTE | 2021-09-09 19:51 | Anesthesia Procedure Note ---
Date of Service September 09, 2021 Anesthesia Post Epidural Note Vital Signs Vital Signs: Temp Pulse Resp BP Pulse Ox 37.3 C 83 24 127/75 100 09/09/21 17:30 09/09/21 19:38 09/09/21 17:30 09/09/21 19:38 09/09/21 18:17 Pain Intensity Abdomen: Pain Intensity: 5 Notes Mental Status: alert / awake / arousable and participated in evaluation Patient Amnestic to Procedure: No Nausea / Vomiting: adequately controlled Pain: adequately controlled Airway Patency, RR, SpO2: stable & adequate BP & HR: stable & adequate Hydration State: stable & adequate Neuraxial Anesthesia: was administered and sensory block is resolving Anesthetic Complications: no major complications apparent and Pt Satisfied with anesthetic care Epidural: Removed without complications and With tip intact
[2021-09-09] MEDS: IBUPROFEN 600 MG TAB PO PRN (20:35)
[2021-09-09] MEDS: DOCUSATE SODIUM 100 MG CAP PO SCH (21:43)
[2021-09-10] MEDS: IBUPROFEN 600 MG TAB PO PRN ×4 (04:09→18:12)
--- NOTE | 2021-09-10 07:33 | Obstetrical Progress Note ---
Date of Service September 10, 2021 Assessment & Plan (1) Gestational diabetes: day #1 from vacuum-assisted vaginal delivery she is doing well ambulating tolerating oral diet continue current care Subjective Ambulation: ambulating normally Voiding: no voiding problems Passing Gas:: Yes Diet Tolerance:: regular diet Lochia:: Small Results & Data ([facility]) Vital Signs (Past 12 Hours) Vital Signs Temp Pulse Pulse Resp BP BP Pulse Ox 09/10/21 03:30 97.5 F L 78 18 94/56 L 98 09/09/21 22:00 98.6 F 84 18 90/54 L 96 09/09/21 20:42 89 100/57 L 09/09/21 20:41 85 88/52 L 09/09/21 20:35 18 09/09/21 20:24 79 102/59 L 09/09/21 20:20 97.9 F 18 09/09/21 20:05 16 09/09/21 19:38 83 127/75 09/09/21 19:35 18
[2021-09-10] MEDS: PRENATAL VITAMIN 1 TAB PO SCH (08:58)
[2021-09-10] MEDS: DOCUSATE SODIUM 100 MG CAP PO SCH ×2 (08:59→21:30)
[2021-09-10] MEDS ORDERED: bisacodyL 5 MG TABEC PO SCH (20:00)
[2021-09-11] MEDS: IBUPROFEN 600 MG TAB PO PRN ×2 (00:01→10:42)
--- NOTE | 2021-09-11 06:45 | Obstetrical Progress Note ---
Date of Service <Yasmeen Garcia MD - Last Filed: 09/11/21 07:05> September 11, 2021 Assessment & Plan <Yasmeen Garcia MD - Last Filed: 09/11/21 07:05> (1) Vaginal delivery: 31 yo , PNC GDMA1, now PPD2 from vacuum assisted delivery with midline episiotomy at 40wk4d -Vitals reviewed- HDS, afebrile -Blood type A+, GBS-, Rubella immune -Discharge today after seeing team, d/c instructions reviewed -F/u in 6 weeks with OB <Leobardo Young MD, FACOG - Last Filed: 09/11/21 07:07> (1) Vaginal delivery: Subjective <Yasmeen Garcia MD - Last Filed: 09/11/21 07:05> Ambulation: ambulating normally Voiding: no voiding problems Passing Gas:: Yes Diet Tolerance:: regular diet Lochia:: Small Feeding Type:: breast feeding Current Pain Level(1-10): 0 Pt doing well overall. States is not going very well and would like to see team. Otherwise eager to go home today. Review of Systems Denies fevers/chills. Denies dyspnea, cough. Denies chest pain. Denies breast pain or discharge. Denies dysuria. Denies headache. Denies back pain. Physical Exam <Yasmeen Garcia MD - Last Filed: 09/11/21 07:05> General: Alert, oriented, no acute distress Cardiac: Regular rate and rhythm, normal S1, S2. No murmurs appreciated. Respiratory: Clear to auscultation b/l with good air flow entry, symmetric chest rise and fall. No wheezes or crackles. No increased work of breathing or accessory muscle use Abdomen: Soft, nontender, nondistended. Fundus firm and palpable at 2 cm below umbilicus. No guarding or rebound. Skin: No rashes or lesions Extremities: Warm, dry, well-perfused with capillary refill <2s b/l. No lower extremity edema, erythema or swelling, no calf tenderness Results & Data ([facility]) <Yasmeen Garcia MD - Last Filed: 09/11/21 07:05> Vital Signs (Past 12 Hours) Vital Signs Temp Pulse Resp BP Pulse Ox 09/10/21 23:15 36.7 C 74 18 101/65 97 09/10/21 19:45 36.4 C L 75 18 93/56 L 96 <Leobardo Young MD, FACOG - Last Filed: 09/11/21 07:07> Co-Signing Physician Notes Resident Physician Supervision Note: I interviewed and examined the patient. Discussed with Dr. Garcia and agree with findings and plan as documented in the note. Any exceptions or clarifications are listed here: [None] Documented By: Leobardo Young MD, FACOG Resident Activity Tracking <Yasmeen Garcia MD - Last Filed: 09/11/21 07:05> Resident Involvement: Resident Care Provided Care Provided: OB Delivery
[2021-09-11] MEDS: DOCUSATE SODIUM 100 MG CAP PO SCH (07:35)
[2021-09-11] MEDS: PRENATAL VITAMIN 1 TAB PO SCH (07:35)
[2021-09-11 07:46] LABS: Hematocrit (blood only) 30.1 % (37-47); Hemoglobin 10.2 g/dL (12.0-16.0)
--- NOTE | 2021-09-13 07:27 | Discharge Summary ---
Date of Service September 13, 2021 Admission HPI Per Admitting Provider 30yo @ 40 05/29, sent from office when she had spontaneous rupture of membranes during cervix examination. +FM, no vaginal bleeding. Not feeling ctx. with gestational diabetes A1. Hospital Course (1) Vaginal delivery: 31 yo , PNC GDMA1, now PPD2 from vacuum assisted delivery with midline episiotomy at 40wk4d -Vitals reviewed- HDS, afebrile -Blood type A+, GBS-, Rubella immune -Discharge today after seeing team, d/c instructions reviewed -F/u in 6 weeks with OB Coding Level of Care Code None Diagnoses Vaginal delivery O80
== END 2021-09-11 15:45 | disposition home or self-care (01) | DRG 806 ==
LOC: OPB 11:57 → 4S1 12:05 → 4E2 09-09 21:33

== ENCOUNTER 2024-02-13 08:45 | Inpatient (IN) ==
[2024-02-13] MEDS ORDERED: LIDOCAINE 1% LOCAL 20 ML VIAL INFIL PRN (09:50)
--- NOTE | 2024-02-13 09:50 | Labor Progress Brief Note ---
Date of Service February 13, 2024 Subjective 33yo at 39w4d presents with contractions Q5min since early this AM. No LOF, no VB, good FM. No prior cervical exams this . C/B GDM diet controlled, possible R club foot, possible pericardial effusion. Assessment & Plan (1) Gestational diabetes mellitus (GDM) affecting : Plan: Diet controlled, one FSBG and will determine further needs from there. (2) Normal labor and delivery: Plan: No prior exams to ensure this represents active change, but patient very uncomfortable during contractions. Will recheck at short interval to confirm and can then initiate IV/Epidural/Etc. Physical Exam Genitourinary: /high-floating. Intact. FHT Cat 1 [place] Q4-5 Results & Data Vital Signs (Past 12 Hours) Vital Signs Temp Pulse Resp BP 02/13/24 09:08 98.1 F 95 H 18 105/66 Coding Level of Care Code None Diagnoses Gestational diabetes mellitus (GDM) affecting O24.419 Normal labor and delivery O80
[2024-02-13 10:19] LABS: Hematocrit (blood only) 37.6 % (37.0-47.0); Hemoglobin 12.5 g/dl (12.0-16.0); Mean Corpuscular Hgb Conc 33.2 g/dL (32.0-36.0); Mean Corpuscular Volume 90.2 fL (80.0-100.0); Platelet Count 188 K/uL (130-400); RDW Coefficient of Variation 14.5 % (11.5-14.5); RDW Standard Deviation 47.7 fL (36.4-46.3); Red Blood Count 4.17 M/uL (4.20-5.40); White Blood Count 7.64 K/ul (4.8-10.8)
[2024-02-13] MEDS: LACTATED RINGER'S 1,000 ML IV SCH (10:30)
[2024-02-13] MEDS ORDERED: LIDOCAINE 2% MPF LOCAL 5 ML VIAL EPI PRN (11:00)
[2024-02-13] MEDS ORDERED: BUPIVACAINE 0.25% PF 30 ML VIAL EPI PRN (11:00)
[2024-02-13] MEDS ORDERED: NALOXONE HCL 1 MG in SODIUM CHLORIDE 0.9% 1,000 ML IV PRN (11:00)
[2024-02-13] MEDS ORDERED: ePHEDrine sulfate 50 MG/ML AMP IV PRN (11:00)
[2024-02-13] MEDS ORDERED: ROPIVACAINE 0.5% PF 5 MG/ML 20 ML VIAL EPI PRN (11:00)
[2024-02-13] MEDS ORDERED: fentaNYL citrate PF 100 MCG/2 ML VIAL EPI PRN (11:00)
[2024-02-13] MEDS ORDERED: SODIUM CHLORIDE 0.9% PF INJ 10 ML VIAL EPI PRN (11:00)
[2024-02-13] MEDS ORDERED: NALOXONE HCL 0.4 MG/1 ML VIAL/CARP IV PRN (11:00)
[2024-02-13] MEDS ORDERED: NALBUPHINE HCL INJ 10 MG/ML AMP IV PRN (11:00)
[2024-02-13] MEDS ORDERED: diphenhydrAMINE 50 MG/ML VIAL IV PRN (11:00)
--- NOTE | 2024-02-13 11:00 | Anesthesiology Consultation ---
Date of Service February 13, 2024 Assessment & Plan (1) Encounter for pre-operative examination: Chart Review Chart Review: Patient NOT seen in Pre Admission Testing and Acceptable Risk for Labor Epidural Consults Requested none History Height/Weight Height: 5 ft 2.2 in Weight: 62.596 kg Allergies Allergy/AdvReac Type Severity Reaction Status Date / Time No Known Allergies Allergy Verified 02/13/24 09:52 Medications Home Medications Medication Instructions Recorded Confirmed Last Taken prenat.vits,francisco,[id number] 1 tab PO DAILY 01/20/21 02/13/24 02/12/24 08:00 acetone (urine) test (Ketone Urine #50 ea 07/15/23 02/05/24 Unknown Test strips) blood sugar diagnostic (OneTouch #150 ea 07/15/23 02/05/24 Unknown Verio test strips) lancets 33 gauge (OneTouch Delica #150 ea 07/15/23 02/05/24 Unknown Plus Lancet) breast pump #1 ea 09/09/23 02/05/24 Unknown Past Medical History Medical History Decreased movement Vaginal delivery Encounter for pre-operative examination Gestational diabetes Supervision of normal intrauterine in primigravida Past Family History Family History Other Cancer Denies family history of Ovarian cancer Prostate cancer Breast cancer Colorectal cancer Social History Smoking Status: Never smoker Do You Dip or Chew Tobacco: No Hx Alcohol Use: No Hx Substance Use: No substance use type: does not use Physical Exam Vital Signs Last Vital Signs Temp 98.1 F 02/13/24 09:08 Pulse 95 H 02/13/24 09:08 Resp 18 02/13/24 09:08 BP 105/66 02/13/24 09:08 Testing Laboratory Results 02/13/24 10:02
[2024-02-13] MEDS: BUPIVACAINE 0.25% PF 30 ML VIAL ONE (11:23)
[2024-02-13] MEDS: LIDOCAINE 2%/EPINEPHRINE 1:200,000 20 ML PF ONE (11:23)
[2024-02-13] MEDS: fentaNYL citrate PF 100 MCG/2 ML VIAL ONE (11:23)
[2024-02-13] MEDS: fentANYL 2 MCG/ML BUPIVacaine 0.125%-NSS 100ML BAG ONE (11:24)
--- NOTE | 2024-02-13 13:17 | History & Physical Report ---
Date of Service February 13, 2024 Assessment & Plan (1) Encounter for vaginal delivery: Plan: Patient is a 33yo at 39w4d admitted for labor. Contractions since 5am this morning Received epidural Pitocin if necessary Monitor heart tracing: currently category I Admission and Anticipated Discharge Date Admission Date: February 13, 2024 History of Present Illness Chief Complaint: labor Primary Care Provider: NO PCP Patient is a 33yo at 39w4d admitted for labor. States she has been having contractions every 5min since early this morning thus decided to come in. Denies any significant vaginal bleeding. Denies any significant vaginal discharge. Endorses baby has been moving frequently. Endorses contractions that have been becoming more frequent. Complications this : denies Complications in previous : denies Complications in previous delivery: vacuum delivery Last bowel movement: this AM, no issues Denies any recent fever, body aches, chills, headache, dizziness, nausea/vomiting, chest pain, SOB, abdominal pain, LE pain/swelling, LE numbness/tingling. GBS neg, Rh+, T. pallidum neg, Hbg 12.5 Allergies Allergy/AdvReac Type Severity Reaction Status Date / Time No Known Allergies Allergy Verified 02/13/24 09:52 Home Medications Medication Instructions Recorded Confirmed Type prenat.vits,francisco,[id number] 1 tab PO DAILY 01/20/21 02/13/24 History acetone (urine) test (Ketone Urine #50 ea 07/15/23 02/05/24 Rx Test strips) blood sugar diagnostic (OneTouch #150 ea 07/15/23 02/05/24 Rx Verio test strips) lancets 33 gauge (OneTouch Delica #150 ea 07/15/23 02/05/24 Rx Plus Lancet) breast pump #1 ea 09/09/23 02/05/24 Rx Patient History Medical History Decreased movement Vaginal delivery Encounter for pre-operative examination Gestational diabetes Supervision of normal intrauterine in primigravida Family History Other Cancer Denies family history of Ovarian cancer Prostate cancer Breast cancer Colorectal cancer Social History (Updated 07/02/23 @ 10:54 by Debbie Gutiérrez RN) Smoking Status: Never smoker Second Hand Exposure: No; Do You Dip or Chew Tobacco: No; Hx Alcohol Use: No Hx Substance Use: No Preferred Language: Mandarin [place]an Communication Ability: Effective Supervisor [employer] Required: No Beliefs That Will Affect Care: None marital status: marital status details: Spouse: Kane (32) [phone] Current Living Situation: Spouse and Family Current Living Situation Comment: and 2 yo son current occupational status: unemployed Other Information That Helps Us Care for You: No Feels Safe at Home: Yes Safety Concerns: Feels Safe At This Time Assistive Devices: None Review of Systems per HPI Physical Exam Physical Exam: General: A&Ox4, resting comfortably in NAD, nontoxic in appearance Skin: warm, dry, intact HEENT: NC/AT, anicteric sclerae, conjunctiva w/o injection, moist mucous membranes Heart: +s1/s2, RRR, no m/r/g Lungs: equal air entry b/l, clear to auscultation b/l, no wheeze, rales, or rhonchi Abd: +BS, gravid, no tenderness to palpation, no erythema or lesions Cervical: 7/100/0, soft, anterior; est weight 6-7lbs Ext: no swelling, no erythema or tenderness to palpation, Homans negative b/l; no cyanosis or clubbing Neuro: speech intact, no facial droop, moves all extremities on command FHR: 130 baseline, low moderate variability, accelerations present, decelerations absent Cat I Results & Data Vital Signs (Past 12 Hours) Vital Signs Temp Pulse Resp BP Pulse Ox 02/13/24 13:10 95 02/13/24 13:10 91 H 02/13/24 13:05 95 02/13/24 13:05 82 02/13/24 13:04 81 02/13/24 13:04 102/62 02/13/24 13:00 96 02/13/24 13:00 82 02/13/24 12:55 95 02/13/24 12:55 79 02/13/24 12:51 78 02/13/24 12:51 98/62 L 02/13/24 12:50 96 02/13/24 12:50 75 02/13/24 12:46 20 02/13/24 12:46 20 02/13/24 12:45 95 02/13/24 12:45 82 02/13/24 12:40 96 02/13/24 12:40 76 02/13/24 12:35 95 02/13/24 12:35 83 02/13/24 12:35 104/63 02/13/24 12:31 20 02/13/24 12:31 20 02/13/24 12:30 96 02/13/24 12:30 79 02/13/24 12:25 96 02/13/24 12:25 85 02/13/24 12:20 96 02/13/24 12:20 91 H 02/13/24 12:19 81 02/13/24 12:19 105/58 L 02/13/24 12:16 20 02/13/24 12:16 20 02/13/24 12:15 97 02/13/24 12:15 86 02/13/24 12:10 95 02/13/24 12:10 81 02/13/24 12:05 96 02/13/24 12:05 90 02/13/24 12:05 119/66 02/13/24 12:01 20 02/13/24 12:01 20 02/13/24 12:00 95 02/13/24 12:00 93 H 02/13/24 11:55 93 02/13/24 11:55 74 02/13/24 11:50 93 02/13/24 11:50 81 02/13/24 11:48 73 02/13/24 11:48 111/66 02/13/24 11:46 20 02/13/24 11:46 37.0 C 20 02/13/24 11:45 94 02/13/24 11:45 79 02/13/24 11:44 93 02/13/24 11:44 82 02/13/24 11:44 75 02/13/24 11:44 115/69 02/13/24 11:40 95 02/13/24 11:40 77 02/13/24 11:39 74 02/13/24 11:39 104/65 02/13/24 11:38 94 02/13/24 11:38 73 02/13/24 11:35 94 02/13/24 11:35 77 02/13/24 11:33 77 02/13/24 11:33 107/67 02/13/24 11:32 94 02/13/24 11:32 78 02/13/24 11:30 20 02/13/24 11:30 20 02/13/24 11:30 96 02/13/24 11:30 81 02/13/24 11:27 85 02/13/24 11:27 106/72 02/13/24 11:25 96 02/13/24 11:25 84 02/13/24 11:25 90 02/13/24 11:25 104/77 02/13/24 11:23 76 02/13/24 11:23 105/77 02/13/24 11:21 73 02/13/24 11:21 116/66 02/13/24 11:20 96 02/13/24 11:20 79 02/13/24 11:19 77 02/13/24 11:19 117/65 02/13/24 11:17 76 02/13/24 11:17 122/64 02/13/24 11:15 100 02/13/24 11:15 74 02/13/24 11:12 78 02/13/24 11:12 136/71 02/13/24 11:10 99 02/13/24 11:10 90 02/13/24 11:05 99 02/13/24 11:05 84 02/13/24 09:08 36.7 C 95 H 18 105/66 Resident Activity Tracking Resident Involvement: Resident Care Provided Care Provided: OB Delivery
[2024-02-13] MEDS: SODIUM CHLORIDE 0.9% PF INJ 10 ML VIAL ONE (14:51)
[2024-02-13] MEDS: BUPIVACAINE 0.25% PF 30 ML VIAL EPI STA (14:52)
[2024-02-13] MEDS: fentaNYL citrate PF 100 MCG/2 ML VIAL EPI STA (14:52)
[2024-02-13] MEDS: SODIUM CHLORIDE 0.9% PF INJ 10 ML VIAL EPI STA (14:52)
[2024-02-13] MEDS: LIDOCAINE 2%/EPINEPHRINE 1:200,000 20 ML PF EPI STA (14:52)
[2024-02-13] MEDS: ePHEDrine sulfate 50 MG/ML AMP ONE (17:07)
--- NOTE | 2024-02-13 18:56 | Labor Progress Brief Note ---
Date of Service February 13, 2024 Subjective Comfortable with epidural Assessment & Plan Admission and Anticipated Discharge Date Admission Date: February 13, 2024 Physical Exam Genitourinary: 9cm per RN. Patient comfortable with epidural. FHT Cat 1 [place] Q2-3 Results & Data Vital Signs (Past 12 Hours) Vital Signs Temp Pulse Resp BP Pulse Ox 02/13/24 18:50 97 02/13/24 18:50 83 02/13/24 18:50 110/68 02/13/24 18:45 97 02/13/24 18:45 78 02/13/24 18:40 97 02/13/24 18:40 99 H 02/13/24 18:36 78 02/13/24 18:36 114/72 02/13/24 18:35 97 02/13/24 18:35 80 02/13/24 18:31 20 02/13/24 18:31 98.8 F 20 02/13/24 18:30 97 02/13/24 18:30 88 02/13/24 18:25 97 02/13/24 18:25 82 02/13/24 18:20 96 02/13/24 18:20 81 02/13/24 18:20 90 02/13/24 18:20 102/67 02/13/24 18:15 96 02/13/24 18:15 93 H 02/13/24 18:10 96 02/13/24 18:10 75 02/13/24 18:06 89 02/13/24 18:06 106/73 02/13/24 18:05 96 02/13/24 18:05 92 H 02/13/24 18:01 20 02/13/24 18:01 98.4 F 20 02/13/24 18:00 95 02/13/24 18:00 75 02/13/24 17:55 96 02/13/24 17:55 83 02/13/24 17:50 96 02/13/24 17:50 93 H 02/13/24 17:50 107/65 02/13/24 17:45 96 02/13/24 17:45 86 02/13/24 17:40 96 02/13/24 17:40 84 02/13/24 17:35 95 02/13/24 17:35 76 02/13/24 17:35 72 02/13/24 17:35 112/75 02/13/24 17:31 20 02/13/24 17:31 20 02/13/24 17:30 97 02/13/24 17:30 72 02/13/24 17:25 95 02/13/24 17:25 75 02/13/24 17:20 96 02/13/24 17:20 74 02/13/24 17:20 102/67 02/13/24 17:15 96 02/13/24 17:15 83 02/13/24 17:10 97 02/13/24 17:10 67 02/13/24 17:06 67 02/13/24 17:06 114/74 02/13/24 17:05 97 02/13/24 17:05 69 02/13/24 17:01 20 02/13/24 17:01 20 02/13/24 17:00 96 02/13/24 17:00 78 02/13/24 16:55 96 02/13/24 16:55 77 02/13/24 16:50 96 02/13/24 16:50 89 02/13/24 16:50 102 H 02/13/24 16:50 94/55 L 02/13/24 16:45 96 02/13/24 16:45 84 02/13/24 16:40 96 02/13/24 16:40 72 02/13/24 16:35 96 02/13/24 16:35 76 02/13/24 16:35 97/56 L 02/13/24 16:31 20 02/13/24 16:31 20 02/13/24 16:30 96 02/13/24 16:30 71 02/13/24 16:25 96 02/13/24 16:25 72 02/13/24 16:20 96 02/13/24 16:20 75 02/13/24 16:20 103/59 L 02/13/24 16:15 95 02/13/24 16:15 87 02/13/24 16:10 96 02/13/24 16:10 72 02/13/24 16:05 95 02/13/24 16:05 72 02/13/24 16:05 101/61 02/13/24 16:01 20 02/13/24 16:01 20 02/13/24 16:00 96 02/13/24 16:00 72 02/13/24 15:55 97 02/13/24 15:55 108 H 02/13/24 15:54 20 02/13/24 15:54 98.6 F 20 02/13/24 15:50 96 02/13/24 15:50 78 02/13/24 15:50 137/70 02/13/24 15:45 95 02/13/24 15:45 74 02/13/24 15:40 94 02/13/24 15:40 72 02/13/24 15:36 68 02/13/24 15:36 115/69 02/13/24 15:35 95 02/13/24 15:35 70 02/13/24 15:31 20 02/13/24 15:31 20 02/13/24 15:30 96 02/13/24 15:30 76 02/13/24 15:25 97 02/13/24 15:25 70 02/13/24 15:20 97 02/13/24 15:20 74 02/13/24 15:19 67 02/13/24 15:19 110/72 02/13/24 15:15 97 02/13/24 15:15 85 02/13/24 15:10 96 02/13/24 15:10 79 02/13/24 15:05 97 02/13/24 15:05 70 02/13/24 15:05 115/74 02/13/24 15:01 20 02/13/24 15:01 20 02/13/24 15:00 96 02/13/24 15:00 69 02/13/24 14:55 96 02/13/24 14:55 81 02/13/24 14:51 81 02/13/24 14:51 116/69 02/13/24 14:50 96 02/13/24 14:50 80 02/13/24 14:45 96 02/13/24 14:45 90 02/13/24 14:40 97 02/13/24 14:40 89 02/13/24 14:35 96 02/13/24 14:35 72 02/13/24 14:34 95 H 02/13/24 14:34 111/74 02/13/24 14:31 20 02/13/24 14:31 98.6 F 20 02/13/24 14:30 99 02/13/24 14:30 95 H 02/13/24 14:25 97 02/13/24 14:25 77 02/13/24 14:21 81 02/13/24 14:21 115/73 02/13/24 14:20 97 02/13/24 14:20 79 02/13/24 14:16 86 L 02/13/24 14:16 78 02/13/24 14:15 94 02/13/24 14:15 82 02/13/24 14:10 91 02/13/24 14:10 71 02/13/24 14:09 87 L 02/13/24 14:09 76 02/13/24 14:05 91 02/13/24 14:05 74 02/13/24 14:04 67 02/13/24 14:04 107/61 02/13/24 14:01 85 L 02/13/24 14:01 76 02/13/24 14:00 91 02/13/24 14:00 73 02/13/24 13:58 20 02/13/24 13:58 20 02/13/24 13:55 94 02/13/24 13:55 73 02/13/24 13:53 87 L 02/13/24 13:53 82 02/13/24 13:51 70 02/13/24 13:51 107/62 02/13/24 13:50 96 02/13/24 13:50 75 02/13/24 13:46 20 02/13/24 13:46 20 02/13/24 13:45 96 02/13/24 13:45 71 02/13/24 13:40 96 02/13/24 13:40 82 02/13/24 13:35 93 02/13/24 13:35 70 02/13/24 13:34 74 02/13/24 13:34 109/64 02/13/24 13:30 94 02/13/24 13:30 70 02/13/24 13:25 93 02/13/24 13:25 75 02/13/24 13:20 93 02/13/24 13:20 73 02/13/24 13:19 75 02/13/24 13:19 107/64 02/13/24 13:16 20 02/13/24 13:16 20 02/13/24 13:15 93 02/13/24 13:15 79 02/13/24 13:10 95 02/13/24 13:10 91 H 02/13/24 13:05 95 02/13/24 13:05 82 02/13/24 13:04 81 02/13/24 13:04 102/62 02/13/24 13:01 20 02/13/24 13:01 20 02/13/24 13:00 96 02/13/24 13:00 82 02/13/24 12:55 95 02/13/24 12:55 79 02/13/24 12:51 78 02/13/24 12:51 98/62 L 02/13/24 12:50 96 02/13/24 12:50 75 02/13/24 12:46 20 02/13/24 12:46 20 02/13/24 12:45 95 02/13/24 12:45 82 02/13/24 12:40 96 02/13/24 12:40 76 02/13/24 12:35 95 02/13/24 12:35 83 02/13/24 12:35 104/63 02/13/24 12:31 20 02/13/24 12:31 20 02/13/24 12:30 96 02/13/24 12:30 79 02/13/24 12:25 96 02/13/24 12:25 85 02/13/24 12:20 96 02/13/24 12:20 91 H 02/13/24 12:19 81 02/13/24 12:19 105/58 L 02/13/24 12:16 20 02/13/24 12:16 20 02/13/24 12:15 97 02/13/24 12:15 86 02/13/24 12:10 95 02/13/24 12:10 81 02/13/24 12:05 96 02/13/24 12:05 90 02/13/24 12:05 119/66 02/13/24 12:01 20 02/13/24 12:01 20 02/13/24 12:00 95 02/13/24 12:00 93 H 02/13/24 11:55 93 02/13/24 11:55 74 02/13/24 11:50 93 02/13/24 11:50 81 02/13/24 11:48 73 02/13/24 11:48 111/66 02/13/24 11:46 20 02/13/24 11:46 98.6 F 20 02/13/24 11:45 94 02/13/24 11:45 79 02/13/24 11:44 93 02/13/24 11:44 82 02/13/24 11:44 75 02/13/24 11:44 115/69 02/13/24 11:40 95 02/13/24 11:40 77 02/13/24 11:39 74 02/13/24 11:39 104/65 02/13/24 11:38 94 02/13/24 11:38 73 02/13/24 11:35 94 02/13/24 11:35 77 02/13/24 11:33 77 02/13/24 11:33 107/67 02/13/24 11:32 94 02/13/24 11:32 78 02/13/24 11:30 20 02/13/24 11:30 20 02/13/24 11:30 96 02/13/24 11:30 81 02/13/24 11:27 85 02/13/24 11:27 106/72 02/13/24 11:25 96 02/13/24 11:25 84 02/13/24 11:25 90 02/13/24 11:25 104/77 02/13/24 11:23 76 02/13/24 11:23 105/77 02/13/24 11:21 73 02/13/24 11:21 116/66 02/13/24 11:20 96 02/13/24 11:20 79 02/13/24 11:19 77 02/13/24 11:19 117/65 02/13/24 11:17 76 02/13/24 11:17 122/64 02/13/24 11:15 100 02/13/24 11:15 74 02/13/24 11:12 78 02/13/24 11:12 136/71 02/13/24 11:10 99 02/13/24 11:10 90 02/13/24 11:05 99 02/13/24 11:05 84 02/13/24 09:08 98.1 F 95 H 18 105/66 Coding Level of Care Code None
[2024-02-13] MEDS: fentANYL 2 MCG/ML BUPIVacaine 0.125%-NSS 100ML BAG EPI PRN (19:16)
[2024-02-13] MEDS: OXYTOCIN 30 UNITS/NSS 30 UNITS/500 ML BAG IV PRN (20:06)
--- NOTE | 2024-02-13 20:18 | Delivery Summary ---
Vaginal Delivery Summary Date of Service February 13, 2024 Vaginal Delivery Summary DIAGNOSES: 1. [place] intrauterine at 39w4d gestation. 2. Spontaneous onset of labor. 3. Group B Streptococcus Neg. PROCEDURE: Spontaneous vaginal delivery and repair of 2nd degree laceration. SURGEON: Lynda Del Valle MD. RESIDENT INSPECTOR: None. QUANTITATIVE BLOOD LOSS: 103 mL. COMPLICATIONS: None. PLACENTA: Spontaneous, circumvallate and intact with a 3-vessel cord. DISPOSITION: Stable to labor and delivery. DESCRIPTION: The patient pushed well and brought the head to in OA position. The infant's head was allowed to deliver with contraction force and no further active pushing, with the perineum protected during this time. There was no nuchal cord. The left shoulder was anterior. The shoulders and body did not deliver with the next contraction. Mayco and Suprapubic were employed and still there was no movement. I introduced my hand to the posterior vagina and attempted delivery of the posterior arm, which was extended and difficult to sweep physiologically. However, I was able to rotate the entire torso counterclockwise while supporting the baby's right shoulder/humerus/elbow in my hand, and with the next push the 's shoulders delivered. The infant was placed on the maternal abdomen. The cord was doubly clamped by the MD and then cut, so the infant could be brought directly to the warmer. The placenta delivered spontaneously and was noted to be intact and with a 3VC though was visibly circumvallate. The cervix, vagina and perineum were examined and were found to have a second degree laceration which was repaired in the usual manner using vicryl suture, including two crown stitches to rebuild the perineal body. The fundus was firm and lochia minimal immediately after delivery. [facility] Vaginal Delivery Charge Vaginal Delivery Codes: 52494 global code for the antepartum, delivery, and post-
[2024-02-13] MEDS ORDERED: bisacodyL 10 MG SUPP PR PRN (20:30)
[2024-02-13] MEDS ORDERED: OXYTOCIN 30 UNITS/NSS 30 UNITS/500 ML BAG IV PRN (20:30)
[2024-02-13] MEDS ORDERED: ACETAMINOPHEN 325 MG TAB PO PRN (20:30)
[2024-02-13] MEDS ORDERED: oxyCODONE/ACETAMINOPHEN 5mg/325mg TAB PO PRN (20:30)
[2024-02-13] MEDS ORDERED: HYDROCORTISONE ACETATE 25 MG SUPP PR PRN (20:30)
--- NOTE | 2024-02-13 21:06 | Anesthesia Procedure Note ---
Date of Service February 13, 2024 Anesthesia Post Epidural Note Vital Signs Vital Signs: Temp Pulse Resp BP Pulse Ox 99.0 F 86 16 118/76 97 02/13/24 20:50 02/13/24 21:05 02/13/24 20:50 02/13/24 21:05 02/13/24 20:45 Pain Intensity Abdomen: Pain Intensity: 3 Notes Mental Status: alert / awake / arousable and participated in evaluation Nausea / Vomiting: adequately controlled Pain: adequately controlled Airway Patency, RR, SpO2: stable & adequate BP & HR: stable & adequate Hydration State: stable & adequate Neuraxial Anesthesia: was administered and sensory block is resolving Anesthetic Complications: no major complications apparent and Pt Satisfied with anesthetic care Epidural: Removed without complications and With tip intact
[2024-02-13] MEDS: DOCUSATE SODIUM 100 MG CAP PO SCH (22:02)
[2024-02-13] MEDS: DIPHTHER/TETAN/PERTUS Vaccine (Tdap, Adol/Adult) 0.5mL IM ONE (22:02)
[2024-02-13] MEDS: BENZOCAINE 20% SPRY 85 APPLN/85 GM CAN EXT PRN (23:21)
--- NOTE | 2024-02-14 05:47 | Obstetrical Progress Note ---
Date of Service <Eran Jones DO - Last Filed: 02/14/24 06:58> February 14, 2024 Assessment & Plan <Eran TrishaKm Jones DO - Last Filed: 02/14/24 06:58> (1) state: Patient is a 33yo day 1 s/p uncomplicated . Continue care Ambulation and as tolerated Pain control Hgb: 11.2 -> 12.5 Home: tomorrow or next day Follow up with Dr. Del Valle in 6wks <Lynda Del Valle MD - Last Filed: 02/14/24 07:15> (1) state: Patient is a 33yo day 1 s/p uncomplicated . Continue care Ambulation and as tolerated Pain control Hgb: 12.5 Home: tomorrow or next day Follow up with Dr. Del Valle in 6wks Subjective <Eran Jones DO - Last Filed: 02/14/24 06:58> Patient is a 33yo day 1 s/p uncomplicated . Ambulation: yes Voiding: urinating, no BM yet, given stool softener Passing gas: not yet Diet tolerance: yes, OB reg Lochia: steady Feeding type: breast, going well Current pain: mild Resting comfortably this AM in NAD. Denies fever, chills, headache, vision changes, chest pain, SOB, abdominal pain, LE pain/swelling, or LE numbness/tingling. Review of Systems as above Physical Exam <Eran Jones DO - Last Filed: 02/14/24 06:58> General: A&Ox4, resting comfortably in NAD, nontoxic in appearance Skin: patient sleeping, exam deferred HEENT: patient sleeping, exam deferred Heart: patient sleeping, exam deferred Lungs: nonlabored respirations, patient sleeping, exam deferred Abd: patient sleeping, exam deferred Ext: patient sleeping, exam deferred Neuro: patient sleeping, exam deferred Results & Data <Eran Jones DO - Last Filed: 02/14/24 06:58> Vital Signs (Past 12 Hours) Vital Signs Temp Pulse Pulse Resp BP BP Pulse Ox 02/14/24 03:00 36.9 C 95 H 16 115/56 L 99 02/13/24 22:30 37.1 C 99 H 16 112/68 98 02/13/24 22:21 99 H 02/13/24 22:21 112/68 02/13/24 22:20 37.1 C 99 H 16 112/68 98 02/13/24 22:05 115 H 02/13/24 22:05 124/86 02/13/24 21:50 37.2 C 16 02/13/24 21:50 96 H 02/13/24 21:50 107/63 02/13/24 21:35 86 02/13/24 21:35 111/69 02/13/24 21:20 37.2 C 16 02/13/24 21:20 86 02/13/24 21:20 112/73 02/13/24 21:05 37.2 C 16 02/13/24 21:05 86 02/13/24 21:05 118/76 02/13/24 20:50 37.2 C 16 02/13/24 20:50 86 02/13/24 20:50 118/74 02/13/24 20:45 97 02/13/24 20:45 95 H 02/13/24 20:40 98 02/13/24 20:40 97 H 02/13/24 20:35 37.2 C 16 02/13/24 20:35 98 02/13/24 20:35 98 H 02/13/24 20:35 95 H 02/13/24 20:35 106/71 02/13/24 20:30 98 02/13/24 20:30 96 H 02/13/24 20:25 97 02/13/24 20:25 95 H 02/13/24 20:20 37.2 C 16 02/13/24 20:20 97 02/13/24 20:20 99 H 02/13/24 20:20 110/66 02/13/24 20:19 99 H 02/13/24 20:19 109/65 02/13/24 20:15 97 02/13/24 20:15 104 H 02/13/24 20:10 98 02/13/24 20:10 103 H 02/13/24 20:05 97 02/13/24 20:05 88 02/13/24 20:04 118/72 02/13/24 20:02 82 L 02/13/24 20:02 111 H 02/13/24 20:00 100 02/13/24 20:00 85 02/13/24 19:55 98 02/13/24 19:55 77 02/13/24 19:50 84 L 02/13/24 19:50 103 H 02/13/24 19:50 118/79 02/13/24 19:45 98 02/13/24 19:45 82 02/13/24 19:43 80 L 02/13/24 19:43 97 H 02/13/24 19:40 99 02/13/24 19:40 83 02/13/24 19:35 99 02/13/24 19:35 80 02/13/24 19:35 80 02/13/24 19:35 113/66 02/13/24 19:30 98 02/13/24 19:30 75 02/13/24 19:25 98 02/13/24 19:25 80 02/13/24 19:20 98 02/13/24 19:20 88 02/13/24 19:20 83 02/13/24 19:20 112/71 02/13/24 19:15 98 02/13/24 19:15 80 02/13/24 19:10 37.0 C 16 02/13/24 19:10 16 02/13/24 19:10 37.0 C 16 02/13/24 19:10 98 02/13/24 19:10 79 02/13/24 19:05 98 02/13/24 19:05 81 02/13/24 19:05 114/71 02/13/24 19:01 20 02/13/24 19:01 20 02/13/24 19:00 97 02/13/24 19:00 93 H 02/13/24 18:55 97 02/13/24 18:55 79 02/13/24 18:50 97 02/13/24 18:50 83 02/13/24 18:50 110/68 02/13/24 18:45 97 02/13/24 18:45 78 02/13/24 18:40 97 02/13/24 18:40 99 H 02/13/24 18:36 78 02/13/24 18:36 114/72 02/13/24 18:35 97 02/13/24 18:35 80 02/13/24 18:31 20 02/13/24 18:31 37.1 C 20 02/13/24 18:30 97 02/13/24 18:30 88 02/13/24 18:25 97 02/13/24 18:25 82 02/13/24 18:20 96 02/13/24 18:20 81 02/13/24 18:20 90 02/13/24 18:20 102/67 02/13/24 18:15 96 02/13/24 18:15 93 H 02/13/24 18:10 96 02/13/24 18:10 75 02/13/24 18:06 89 02/13/24 18:06 106/73 02/13/24 18:05 96 02/13/24 18:05 92 H 02/13/24 18:01 20 02/13/24 18:01 36.9 C 20 02/13/24 18:00 95 02/13/24 18:00 75 02/13/24 17:55 96 02/13/24 17:55 83 02/13/24 17:50 96 02/13/24 17:50 93 H 02/13/24 17:50 107/65 02/13/24 17:45 96 02/13/24 17:45 86 O2 Del Method 02/14/24 03:00 Room Air 02/13/24 22:30 Room Air 02/13/24 22:21 02/13/24 22:21 02/13/24 22:20 02/13/24 22:05 02/13/24 22:05 02/13/24 21:50 02/13/24 21:50 02/13/24 21:50 02/13/24 21:35 02/13/24 21:35 02/13/24 21:20 02/13/24 21:20 02/13/24 21:20 02/13/24 21:05 02/13/24 21:05 02/13/24 21:05 02/13/24 20:50 02/13/24 20:50 02/13/24 20:50 02/13/24 20:45 02/13/24 20:45 02/13/24 20:40 02/13/24 20:40 02/13/24 20:35 02/13/24 20:35 02/13/24 20:35 02/13/24 20:35 02/13/24 20:35 02/13/24 20:30 02/13/24 20:30 02/13/24 20:25 02/13/24 20:25 02/13/24 20:20 02/13/24 20:20 02/13/24 20:20 02/13/24 20:20 02/13/24 20:19 02/13/24 20:19 02/13/24 20:15 02/13/24 20:15 02/13/24 20:10 02/13/24 20:10 02/13/24 20:05 02/13/24 20:05 02/13/24 20:04 02/13/24 20:02 02/13/24 20:02 02/13/24 20:00 02/13/24 20:00 02/13/24 19:55 02/13/24 19:55 02/13/24 19:50 02/13/24 19:50 02/13/24 19:50 02/13/24 19:45 02/13/24 19:45 02/13/24 19:43 02/13/24 19:43 02/13/24 19:40 02/13/24 19:40 02/13/24 19:35 02/13/24 19:35 02/13/24 19:35 02/13/24 19:35 02/13/24 19:30 02/13/24 19:30 02/13/24 19:25 02/13/24 19:25 02/13/24 19:20 02/13/24 19:20 02/13/24 19:20 02/13/24 19:20 02/13/24 19:15 02/13/24 19:15 02/13/24 19:10 02/13/24 19:10 02/13/24 19:10 02/13/24 19:10 02/13/24 19:10 02/13/24 19:05 02/13/24 19:05 02/13/24 19:05 02/13/24 19:01 02/13/24 19:01 02/13/24 19:00 02/13/24 19:00 02/13/24 18:55 02/13/24 18:55 02/13/24 18:50 02/13/24 18:50 02/13/24 18:50 02/13/24 18:45 02/13/24 18:45 02/13/24 18:40 02/13/24 18:40 02/13/24 18:36 02/13/24 18:36 02/13/24 18:35 02/13/24 18:35 02/13/24 18:31 02/13/24 18:31 02/13/24 18:30 02/13/24 18:30 02/13/24 18:25 02/13/24 18:25 02/13/24 18:20 02/13/24 18:20 02/13/24 18:20 02/13/24 18:20 02/13/24 18:15 02/13/24 18:15 02/13/24 18:10 02/13/24 18:10 02/13/24 18:06 02/13/24 18:06 02/13/24 18:05 02/13/24 18:05 02/13/24 18:01 02/13/24 18:01 02/13/24 18:00 02/13/24 18:00 02/13/24 17:55 02/13/24 17:55 02/13/24 17:50 02/13/24 17:50 02/13/24 17:50 02/13/24 17:45 02/13/24 17:45 Supervising Physician <Lynda Del Valle MD - Last Filed: 02/14/24 07:15> Co-Signing Physician Notes Resident Physician Supervision Note: I interviewed and examined the patient. Discussed with Dr. Jones and agree with findings and plan as documented in the note. Any exceptions or clarifications are listed here: Patient ambulating in room with , appears comfortable, reports no concerns when I visited with her this morning. Planning to stay until tomorrrow. Documented By: Lynda Del Valle MD, FACOG Resident Activity Tracking <Eran Jones DO - Last Filed: 02/14/24 06:58> Resident Involvement: Resident Care Provided Care Provided: OB Delivery
[2024-02-14 07:34] LABS: Hematocrit (blood only) 32.7 % (37.0-47.0); Hemoglobin 10.9 g/dl (12.0-16.0); Mean Corpuscular Hemoglobin 29.9 pg (25.0-34.0); Mean Corpuscular Hgb Conc 33.3 g/dL (32.0-36.0); Mean Corpuscular Volume 89.6 fL (80.0-100.0); Platelet Count 154 K/uL (130-400); RDW Coefficient of Variation 14.6 % (11.5-14.5); RDW Standard Deviation 46.9 fL (36.4-46.3); Red Blood Count 3.65 M/uL (4.20-5.40); White Blood Count 13.17 K/ul (4.8-10.8)
[2024-02-14] MEDS: PRENATAL VITAMIN 1 TAB PO SCH (08:44)
[2024-02-14] MEDS: IBUPROFEN 600 MG TAB PO PRN (08:44)
[2024-02-14] MEDS: bisacodyL 5 MG TABEC PO SCH (20:12)
[2024-02-15 01:09] VITALS: O2SAT 96
--- NOTE | 2024-02-15 06:03 | Obstetrical Progress Note ---
Date of Service <Eran Coronadosavanah - Last Filed: 02/15/24 08:20> February 15, 2024 Assessment & Plan <Eran CoronadoDO savanah - Last Filed: 02/15/24 08:20> (1) state: Patient is a 33yo day 2 s/p with 2nd deg perineal lac Continue care Ambulation and as tolerated Pain control Hgb: 10.9 -> 11.5 Home: today Follow up with Dr. Del Valle in 6wks <Dorene Valladares MD, FACOG - Last Filed: 02/15/24 09:27> (1) state: Subjective <Eran Coronadosavanah - Last Filed: 02/15/24 08:20> Patient is a 33yo day 2 s/p with 2nd degree perineal laceration. Ambulation: yes Voiding: urinating and had BM Passing gas: yes Diet tolerance: yes, OB reg Lochia: steady Feeding type: breast, going well Current pain: mild pelvic pain Rubella immune as of June 2023, Rh+ no rhogam. Resting comfortably this AM in NAD. Denies fever, chills, headache, vision changes, chest pain, SOB, abdominal pain, LE pain/swelling, or LE numbness/tingling. Physical Exam <Eran RicoKm KarenDO savanah - Last Filed: 02/15/24 08:20> General: A&Ox4, resting comfortably in NAD, nontoxic in appearance Skin: exam deferred HEENT: exam deferred Heart: exam deferred Lungs: nonlabored respirations, otherwise exam deferred Abd: exam deferred Ext: moves all extremities, exam deferred Neuro: minimal speech, no facial droop, otherwise exam deferred Results & Data <Eran RicoKm Jones DO - Last Filed: 02/15/24 08:20> Vital Signs (Past 12 Hours) Vital Signs Temp Pulse Resp BP Pulse Ox O2 Del Method 02/15/24 00:45 36.7 C 77 18 108/67 96 Room Air 02/14/24 19:45 36.4 C L 75 18 102/64 97 Room Air Supervising Physician <Dorene Valladares MD, FACOG - Last Filed: 02/15/24 09:27> Co-Signing Physician Notes Resident Physician Supervision Note: I was present with Dr. Akers during the history and exam. I discussed the case with the resident and agree with the findings and plan as documented in the note. Any exceptions or clarifications are listed here: doing well, eating, voiding, no bleeding issues. breast feeding. ready to go home abd soft ff a u, nt, ext nt calves. ppd#2 s/p . dc home, instructions reviewed. f/u 6wk pp check. Documented By: Dorene Valladares MD, FACOG Resident Activity Tracking <Eran Jones, DO - Last Filed: 02/15/24 08:20> Resident Involvement: Resident Care Provided Care Provided: OB Delivery
[2024-02-15 07:52] VITALS: BP 106/71; PULSE 62; RESP 16; TEMP 97.7
[2024-02-15 08:15] LABS: Hematocrit (blood only) 34.4 % (37.0-47.0); Hemoglobin 11.5 g/dl (12.0-16.0)
== END 2024-02-15 14:45 | disposition home or self-care (01) | DRG 807 ==
LOC: OPB 08:45 → 4S1 08:48 → 4E1 23:51